=== PATIENT | female | born 1930 | race Caucasian/White ===

== ENCOUNTER 2018-05-19 07:53 | Emergency (ER) | payer MEDICARE, OTHER ==
[2018-05-19] MEDS ORDERED: Sodium Chloride 0.9% 10 ML Syringe FLUSH PRN (08:02)
[2018-05-19 08:53] LABS: ANION GAP 15.4; CHLORIDE,CL 96 mmol/L (101-111); SODIUM,NA 130 mmol/L (135-145)
[2018-05-19] MEDS ORDERED: Acetaminophen 325 MG Tab PO ONE (09:00)
--- NOTE | 2018-05-19 09:14 | EDM.PDOC ---
ED HPI GENERAL MEDICAL PROBLEM - General Chief Complaint: Possible Sepsis Stated Complaint: TROUBLE BREATHING,WEAK [id number] Time Seen by Provider: 05/19/18 08:43 Source of Information: Reports: Patient, RN, RN Notes Reviewed History Limitations: Reports: No Limitations - History of Present Illness INITIAL COMMENTS - FREE TEXT/NARRATIVE: Patient presents to ER with complaint of shortness of breath and dry cough. Patient states she was diagnosed with pneumonia on 04/30/18 and was given Amoxicillin. She has had chills, fever, shortness of breath and constipation. She has had no nausea, vomiting, diarrhea or chest pain. Onset: Gradual Duration: Constant Location: Reports: Chest Quality: Reports: Ache Severity: Moderate Improves with: Reports: None Worsens with: Reports: None Associated Symptoms: Reports: No Other Symptoms - Related Data Allergies Allergy/AdvReac Type Severity Reaction Status Date / Time aspirin Allergy Airway Verified 05/19/18 08:03 Tightness an eye drop for virus Allergy Itching Uncoded 05/19/18 08:03 seldane Allergy Cannot Uncoded 05/19/18 08:03 Remember Home Meds: Home Meds Albuterol [Ventolin HFA] 2 puff INH Q6HR PRN 07/19/13 [History] Levothyroxine [Synthroid] 100 mcg PO DAILY 07/19/13 [History] Montelukast [Singulair] 10 mg PO BEDTIME 07/19/13 [History] Theophylline [Theophylline Anhydrous] 300 mg PO BID 07/19/13 [History] Budesonide [Pulmicort Flexhaler] 2 puff INH BID 04/09/18 [History] Ganciclovir [Zirgan] 1 applic EYELF .5XDAY 04/09/18 [History] Non-Formulary Medication [NF Drug] 1 puff INH BID 04/09/18 [History] Omeprazole 20 mg PO DAILY 04/09/18 [History] Furosemide 40 mg PO DAILY #30 tablet 04/11/18 [Rx] Past Medical History HEENT History: Reports: Impaired Vision, Sinusitis Cardiovascular History: Reports: Heart Failure, Other (See Below) Other Cardiovascular History: mitral regurgitation Respiratory History: Reports: Asthma, Pneumonia, Recurrent, SOB Gastrointestinal History: Reports: Diverticulosis [employer] History: Reports: Endocrine/Metabolic History: Reports: Other (See Below) Other Endocrine/Metabolic History: radioactive therapy for thyroid - Past Surgical History Female Surgical History: Reports: Hysterectomy Musculoskeletal Surgical History: Reports: Arthroscopic Knee Social & Family History - Family History Family Medical History: Noncontributory - Tobacco Use Smoking Status *Q: Never Smoker - Caffeine Use Caffeine Use: Reports: Coffee - Recreational Drug Use Recreational Drug Use: No ED ROS GENERAL - Review of Systems Review Of Systems: ROS reveals no pertinent complaints other than HPI. ED EXAM, GENERAL - Physical Exam Exam: See Below Exam Limited By: No Limitations General Appearance: Alert Eye Exam: Bilateral Eye: EOMI, Normal Inspection, PERRL, Other (wearing glasses) Ears: Normal External Exam, Normal Canal, Hearing Grossly Normal, Normal TMs Nose: Normal Inspection, Normal Mucosa, No Blood Throat/Mouth: Normal Inspection, Normal Lips, Normal Teeth, Normal Gums, Normal Oropharynx, Normal Voice, No Airway Compromise Head: Atraumatic Neck: Normal Inspection, Supple, Non-Tender, Full Range of Motion Respiratory/Chest: Decreased Breath Sounds Cardiovascular: Other (murmur) GI/Abdominal: Normal Bowel Sounds, Soft, Non-Tender, No Organomegaly, No Distention, No Abnormal Bruit, No Mass (Female) Exam: Deferred Rectal (Female) Exam: Deferred Back Exam: Normal Inspection, Full Range of Motion, NT Extremities: Normal Inspection, Normal Range of Motion, Non-Tender, Normal Capillary Refill, No Pedal Edema Neurological: Alert, Oriented, CN II-XII Intact, Normal Cognition, Normal Gait, Normal Reflexes, No Motor/Sensory Deficits Psychiatric: Normal Affect Skin Exam: Warm, Dry, Intact, Normal Color, No Rash Lymphatic: No Adenopathy EKG INTERPRETATION EKG Date: 05/19/18 Time: 08:18 Rhythm: NSR Rate (Beats/Min): 94 [place]: Normal P-Wave: Present QRS: Wide ST-T: Normal QT: Normal Comparison: No Change Course - Vital Signs Last Recorded V/S: Last Vital Signs Temp 100.2 F 05/19/18 08:59 Pulse 87 05/19/18 08:59 Resp 24 H 05/19/18 08:59 BP 133/55 L 05/19/18 08:03 Pulse Ox 92 L 05/19/18 09:24 - Orders/Labs/Meds Orders: Active Orders 24 hr Category Date Time Status EKG Documentation Completion [RC] STAT Care 05/19/18 08:03 Active Peripheral IV Care [RC] . DIRECTED Care 05/19/18 08:03 Active RT Aerosol Therapy [RC] ASDIRECTED Care 05/19/18 09:24 Active Chest 1V Frontal [CR] Stat Exams 05/19/18 08:03 Taken CULTURE BLOOD [BC] Stat Lab 05/19/18 08:15 Received CULTURE BLOOD [BC] Stat Lab 05/19/18 08:20 Received CULTURE URINE [RM] Stat Lab 05/19/18 09:13 Received Blood Culture x2 Reflex Set [OM.PC] Stat Oth 05/19/18 08:03 Ordered Peripheral IV Insertion Adult [OM.PC] Stat Oth 05/19/18 08:02 Ordered Labs: Laboratory Tests 05/19/18 05/19/18 05/19/18 Range/Units 08:15 08:15 08:15 WBC 13.6 H (5.0-10.0) 10^3/uL RBC 4.36 (4.2-5.4) 10^6/uL Hgb 12.7 D (12.0-16.0) g/dL Hct 39.1 (37.0-47.0) % MCV 89.7 (80-100) fL MCH 29.1 (27.0-34.0) pg MCHC 32.5 L (33.0-35.0) g/dL Plt Count 323 (150-450) 10^3/uL Neut % (Auto) 85.4 H (42.2-75.2) % Lymph % (Auto) 5.6 L (20.5-50.1) % [place] % (Auto) 8.5 H (2-8) % Eos % (Auto) 0.4 L (1.0-3.0) % Baso % (Auto) 0.1 (0.0-1.0) % Sodium 130 L (135-145) mmol/L Potassium 3.4 L (3.6-5.0) mmol/L Chloride 96 L (101-111) mmol/L Carbon Dioxide 22.0 (21.0-31.0) mmol/L Anion Gap 15.4 BUN 12 (7-18) mg/dL Creatinine 0.8 (0.6-1.3) mg/dL Est Cr Clr Drug Dosing 39.92 mL/min Estimated GFR (MDRD) > 60 BUN/Creatinine Ratio 15.00 Glucose 145 H (74-105) mg/dL Lactic Acid 1.1 (0.5-2.2) mmol/L Calcium 8.7 (8.4-10.2) mg/dl Total Bilirubin 0.8 (0.2-1.0) mg/dL AST 23 (10-42) IU/L ALT 17 (10-60) IU/L Alkaline Phosphatase 85 (42-121) IU/L Troponin I < 0.02 (0.00-0.02) ng/ml B-Natriuretic Peptide 66 (0-100) pg/ml Total Protein 8.1 (6.7-8.2) g/dl Albumin 2.9 L (3.2-5.5) g/dl Globulin 5.2 Albumin/Globulin Ratio 0.56 Urine Color (YELLOW) Urine Appearance (CLEAR) Urine pH (5.0-9.0) Ur Specific [place] (1.005-1.030) Urine Protein (NEGATIVE) Urine Glucose (UA) (NEGATIVE) Urine Ketones (NEGATIVE) Urine Occult Blood (NEGATIVE) Urine Nitrite (NEGATIVE) Urine Bilirubin (NEGATIVE) Urine Urobilinogen (0.2-1.0) mg/dL Ur Leukocyte Esterase (NEGATIVE) Urine RBC /HPF Urine WBC (0-5/HPF) /HPF Ur Epithelial Cells /HPF Urine Bacteria (0-FEW/HPF) /HPF Urine Mucus /LPF 05/19/18 Range/Units 09:13 WBC (5.0-10.0) 10^3/uL RBC (4.2-5.4) 10^6/uL Hgb (12.0-16.0) g/dL Hct (37.0-47.0) % MCV (80-100) fL MCH (27.0-34.0) pg MCHC (33.0-35.0) g/dL Plt Count (150-450) 10^3/uL Neut % (Auto) (42.2-75.2) % Lymph % (Auto) (20.5-50.1) % [place] % (Auto) (2-8) % Eos % (Auto) (1.0-3.0) % Baso % (Auto) (0.0-1.0) % Sodium (135-145) mmol/L Potassium (3.6-5.0) mmol/L Chloride (101-111) mmol/L Carbon Dioxide (21.0-31.0) mmol/L Anion Gap BUN (7-18) mg/dL Creatinine (0.6-1.3) mg/dL Est Cr Clr Drug Dosing mL/min Estimated GFR (MDRD) BUN/Creatinine Ratio Glucose (74-105) mg/dL Lactic Acid (0.5-2.2) mmol/L Calcium (8.4-10.2) mg/dl Total Bilirubin (0.2-1.0) mg/dL AST (10-42) IU/L ALT (10-60) IU/L Alkaline Phosphatase (42-121) IU/L Troponin I (0.00-0.02) ng/ml B-Natriuretic Peptide (0-100) pg/ml Total Protein (6.7-8.2) g/dl Albumin (3.2-5.5) g/dl Globulin Albumin/Globulin Ratio Urine Color Yellow (YELLOW) Urine Appearance Slightly cloudy (CLEAR) Urine pH 7.5 (5.0-9.0) Ur Specific [place] 1.015 (1.005-1.030) Urine Protein 30 H (NEGATIVE) Urine Glucose (UA) Negative (NEGATIVE) Urine Ketones Negative (NEGATIVE) Urine Occult Blood Negative (NEGATIVE) Urine Nitrite Negative (NEGATIVE) Urine Bilirubin Negative (NEGATIVE) Urine Urobilinogen 1.0 (0.2-1.0) mg/dL Ur Leukocyte Esterase Small H (NEGATIVE) Urine RBC 0-5 /HPF Urine WBC 5-10 H (0-5/HPF) /HPF Ur Epithelial Cells Moderate H /HPF Urine Bacteria Few (0-FEW/HPF) /HPF Urine Mucus Occasional /LPF Meds: Medications Discontinued Medications Generic Name Dose Route Start Last Admin Trade Name Freq PRN Reason Stop Dose Admin Acetaminophen 650 mg 05/19/18 09:00 05/19/18 09:04 Tylenol PO 05/19/18 09:01 650 mg NOW ONE Administration Albuterol/Ipratropium 3 ml 05/19/18 09:24 05/19/18 09:30 Duoneb 3.0-0.5 Mg/3 Ml NEB 05/19/18 09:25 3 ml ONETIME ONE Administration Sodium Chloride 10 ml 05/19/18 08:02 Saline Flush FLUSH ASDIRECTED PRN Keep Vein Open - Radiology Interpretation Free Text/Narrative:: Chest Xray: FINDINGS: Lungs: The lungs are hyperinflated. No focal consolidation. Pleural space: Unremarkable. No pleural effusion. No pneumothorax. Heart/Mediastinum: The heart is borderline in size. Bones/joints: Unremarkable. IMPRESSION: Hyperinflation without radiographic evidence of an acute cardiopulmonary process. Thank you for allowing us to participate in the care of your patient. Dictated and Authenticated by: Maddy Shore MD 05/19/2018 9:08 AM Central Time ([place] & [place]) See Rad Report Departure - Departure Time of Disposition: 10:02 Disposition: Home, Self-Care 01 Condition: Fair Clinical Impression: Acute bronchitis Qualifiers: Bronchitis organism: unspecified organism Qualified Code(s): J20.9 - Acute bronchitis, unspecified - Discharge Information *PRESCRIPTION DRUG MONITORING PROGRAM REVIEWED*: No *COPY OF PRESCRIPTION DRUG MONITORING REPORT IN PATIENT GERALDINE: No Instructions: Acute Bronchitis, Adult, [id number] Referrals: Hans Conde MD [Primary Care Provider] - Forms: ED Department Discharge Additional Instructions: RX: Azithromycin, Duonebs Follow up with your primary care facility Return to ER with any further problems - My Orders Last 24 Hours: My Active Orders 05/19/18 08:02 Peripheral IV Insertion Adult [OM.PC] Stat 05/19/18 08:03 EKG Documentation Completion [RC] STAT Peripheral IV Care [RC] . DIRECTED Chest 1V Frontal [CR] Stat Blood Culture x2 Reflex Set [OM.PC] Stat 05/19/18 08:15 CULTURE BLOOD [BC] Stat 05/19/18 08:20 CULTURE BLOOD [BC] Stat 05/19/18 09:13 CULTURE URINE [RM] Stat 05/19/18 09:24 RT Aerosol Therapy [RC] ASDIRECTED - Assessment/Plan Last 24 Hours: My Active Orders 05/19/18 08:02 Peripheral IV Insertion Adult [OM.PC] Stat 05/19/18 08:03 EKG Documentation Completion [RC] STAT Peripheral IV Care [RC] . DIRECTED Chest 1V Frontal [CR] Stat Blood Culture x2 Reflex Set [OM.PC] Stat 05/19/18 08:15 CULTURE BLOOD [BC] Stat 05/19/18 08:20 CULTURE BLOOD [BC] Stat 05/19/18 09:13 CULTURE URINE [RM] Stat 05/19/18 09:24 RT Aerosol Therapy [RC] ASDIRECTED
[2018-05-19] MEDS ORDERED: Albuterol/Ipratropium 3.0-0.5 MG/3 ML Neb Soln NEB ONE (09:24)
== END 2018-05-19 10:15 | disposition home or self-care (01) ==
LOC: DL.ED 07:53
DX: J20.9 Acute bronchitis, unspecified (principal); I50.9 Heart failure, unspecified; J45.909 Unspecified asthma, uncomplicated; Z88.8 Allergy status to other drugs, medicaments and biological substances; Z79.899 Other long term (current) drug therapy
CPT/HCPCS: 36415; 71045; 80053; 81001; 83605; 83880; 84484; 85025; 87040; 87086; 87088; 87186; 87804; 93005; 94640; 99285; A9270; J7620-GY

== ENCOUNTER 2018-07-21 13:13 | Emergency (ER) | payer MEDICARE, OTHER ==
[2018-07-21] MEDS ORDERED: Sodium Chloride 0.9% 10 ML Syringe FLUSH PRN (13:32)
--- NOTE | 2018-07-21 13:43 | EDM.PDOC ---
ED HPI GENERAL MEDICAL PROBLEM - General Chief Complaint: Respiratory Problem Stated Complaint: CALL IN Time Seen by Provider: 07/21/18 13:20 Source of Information: Reports: Patient, EMS, EMS Notes Reviewed, RN, RN Notes Reviewed History Limitations: Reports: No Limitations - History of Present Illness INITIAL COMMENTS - FREE TEXT/NARRATIVE: Patient presents to ER per [facility] with complaint of shortness of breath. States she vacuumed today and got very lightheaded, dizzy and short of breath. She is unsure if she took her 02 off and forgot to put it back on. She has had chills, shortness of breath, light headedness, sinus congestion and dizziness. No fever or chest pain. Onset: Today Duration: Constant Location: Reports: Chest Quality: Reports: Ache Severity: Moderate Improves with: Reports: None Worsens with: Reports: None Associated Symptoms: Reports: No Other Symptoms - Related Data Allergies Allergy/AdvReac Type Severity Reaction Status Date / Time aspirin Allergy Airway Verified 05/19/18 08:03 Tightness an eye drop for virus Allergy Itching Uncoded 05/19/18 08:03 seldane Allergy Cannot Uncoded 05/19/18 08:03 Remember Home Meds: Home Meds Albuterol [Ventolin HFA] 2 puff INH Q6HR PRN 07/19/13 [History] Levothyroxine [Synthroid] 100 mcg PO DAILY 07/19/13 [History] Montelukast [Singulair] 10 mg PO BEDTIME 07/19/13 [History] Theophylline [Theophylline Anhydrous] 300 mg PO BID 07/19/13 [History] Budesonide [Pulmicort Flexhaler] 2 puff INH BID 04/09/18 [History] Ganciclovir [Zirgan] 1 applic EYELF .5XDAY 04/09/18 [History] Non-Formulary Medication [NF Drug] 1 puff INH BID 04/09/18 [History] Omeprazole 20 mg PO DAILY 04/09/18 [History] Furosemide 40 mg PO DAILY #30 tablet 04/11/18 [Rx] Past Medical History HEENT History: Reports: Impaired Vision, Sinusitis Cardiovascular History: Reports: Heart Failure, Other (See Below) Other Cardiovascular History: mitral regurgitation Respiratory History: Reports: Asthma, COPD, Pneumonia, Recurrent, SOB Gastrointestinal History: Reports: Diverticulosis [employer] History: Reports: Endocrine/Metabolic History: Reports: Other (See Below) Other Endocrine/Metabolic History: radioactive therapy for thyroid - Past Surgical History Female Surgical History: Reports: Hysterectomy Musculoskeletal Surgical History: Reports: Arthroscopic Knee Social & Family History - Family History Family Medical History: Noncontributory - Tobacco Use Smoking Status *Q: Never Smoker Second Hand Smoke Exposure: No - Caffeine Use Caffeine Use: Reports: Coffee - Recreational Drug Use Recreational Drug Use: No ED ROS GENERAL - Review of Systems Review Of Systems: ROS reveals no pertinent complaints other than HPI. ED EXAM, GENERAL - Physical Exam Exam: See Below Exam Limited By: No Limitations General Appearance: Alert, WD/WN, No Apparent Distress Eye Exam: Bilateral Eye: EOMI, Normal Inspection, PERRL Ears: Normal External Exam, Normal Canal, Hearing Grossly Normal, Normal TMs Nose: Normal Inspection, Normal Mucosa, No Blood Throat/Mouth: Normal Inspection, Normal Lips, Normal Teeth, Normal Gums, Normal Oropharynx, Normal Voice, No Airway Compromise Head: Atraumatic, Normocephalic Neck: Normal Inspection, Supple, Non-Tender, Full Range of Motion Respiratory/Chest: Other (diminished air exchange) Cardiovascular: Regular Rate, Rhythm GI/Abdominal: Normal Bowel Sounds, Soft, Non-Tender, No Organomegaly, No Distention, No Abnormal Bruit, No Mass (Female) Exam: Deferred Rectal (Female) Exam: Deferred Back Exam: Normal Inspection, Full Range of Motion, NT Extremities: Other (weakness) Neurological: Alert Psychiatric: Normal Affect, Normal Mood Skin Exam: Warm, Dry, Intact, Normal Color, No Rash Lymphatic: No Adenopathy EKG INTERPRETATION EKG Date: 07/21/18 Time: 13:37 Rhythm: Other (sinus rhythm) Rate (Beats/Min): 76 EKG Interpretation Comments: Ventricular premature complex, probable left atrial abnormality, nonspecific intraventricular conduction delay, left ventricular hypertrophy, anterior Q waves, possibly due to LVH and baseline wander in lead (s) III. Course - Vital Signs Last Recorded V/S: Last Vital Signs Temp 98.8 F 07/21/18 13:12 Pulse 89 07/21/18 13:12 Resp 18 07/21/18 13:12 BP 134/70 07/21/18 13:12 Pulse Ox 95 07/21/18 13:12 - Orders/Labs/Meds Orders: Active Orders 24 hr Category Date Time Status EKG Documentation Completion [RC] STAT Care 07/21/18 13:42 Active Peripheral IV Care [RC] . DIRECTED Care 07/21/18 13:33 Active Sodium Chloride 0.9% [Saline Flush] Med 07/21/18 13:32 Active 10 ml FLUSH ASDIRECTED PRN Peripheral IV Insertion Adult [OM.PC] Stat Oth 07/21/18 13:32 Ordered Medication Orders Sodium Chloride (Saline Flush) 10 ml FLUSH ASDIRECTED PRN PRN Reason: Keep Vein Open Last Admin: 07/21/18 13:35 Dose: 10 ml Labs: Laboratory Tests 07/21/18 07/21/18 07/21/18 Range/Units 13:19 13:19 13:19 WBC 7.6 (5.0-10.0) 10^3/uL RBC 4.88 (4.2-5.4) 10^6/uL Hgb 14.2 D (12.0-16.0) g/dL Hct 43.6 (37.0-47.0) % MCV 89.3 (80-100) fL MCH 29.1 (27.0-34.0) pg MCHC 32.6 L (33.0-35.0) g/dL Plt Count 250 (150-450) 10^3/uL Neut % (Auto) 63.9 (42.2-75.2) % Lymph % (Auto) 23.7 (20.5-50.1) % [place] % (Auto) 7.8 (2-8) % Eos % (Auto) 4.1 H (1.0-3.0) % Baso % (Auto) 0.5 (0.0-1.0) % Sodium 136 (135-145) mmol/L Potassium 3.6 (3.6-5.0) mmol/L Chloride 100 L (101-111) mmol/L Carbon Dioxide 26.0 (21.0-31.0) mmol/L Anion Gap 13.6 BUN 16 (7-18) mg/dL Creatinine 1.0 (0.6-1.3) mg/dL Est Cr Clr Drug Dosing 30.47 mL/min Estimated GFR (MDRD) 53 BUN/Creatinine Ratio 16.00 Glucose 117 H (74-105) mg/dL Calcium 9.3 (8.4-10.2) mg/dl Total Bilirubin 0.8 (0.2-1.0) mg/dL AST 25 (10-42) IU/L ALT 16 (10-60) IU/L Alkaline Phosphatase 69 (42-121) IU/L Troponin I < 0.02 (0.00-0.02) ng/ml B-Natriuretic Peptide 62 (0-100) pg/ml Total Protein 8.5 H (6.7-8.2) g/dl Albumin 3.6 (3.2-5.5) g/dl Globulin 4.9 Albumin/Globulin Ratio 0.73 Meds: Medications Generic Name Dose Route Start Last Admin Trade Name Freq PRN Reason Stop Dose Admin Sodium Chloride 10 ml 07/21/18 13:32 07/21/18 13:35 Saline Flush FLUSH 10 ml ASDIRECTED PRN Administration Keep Vein Open - Radiology Interpretation Free Text/Narrative:: Chest xray: Abnormal Subtle asymmetric patchy new consolidation periphery right midlung (axillary segment right upper lobe) compared May, exam. Cardiac silhouette smaller (normal) and no current cephalization of vascular flow, signs of alveolar edema or dependent pleural fluid accumulation i.e. "CHF " resolved. No new lung mass, hilar lymphadenopathy or other lobar consolidation (infiltrate /atelectasis is present See rad report Departure - Departure Time of Disposition: 14:39 Disposition: Home, Self-Care 01 Condition: Fair Clinical Impression: Acute bronchitis Qualifiers: Bronchitis organism: unspecified organism Qualified Code(s): J20.9 - Acute bronchitis, unspecified - Discharge Information *PRESCRIPTION DRUG MONITORING PROGRAM REVIEWED*: No *COPY OF PRESCRIPTION DRUG MONITORING REPORT IN PATIENT GERALDINE: No Instructions: Acute Bronchitis, Adult, [id number] Forms: ED Department Discharge Additional Instructions: RX: Doxycycline Follow up with your primary care facility - My Orders Last 24 Hours: My Active Orders 07/21/18 13:32 Sodium Chloride 0.9% [Saline Flush] 10 ml FLUSH ASDIRECTED PRN Peripheral IV Insertion Adult [OM.PC] Stat 07/21/18 13:33 Peripheral IV Care [RC] . DIRECTED 07/21/18 13:42 EKG Documentation Completion [RC] STAT - Assessment/Plan Last 24 Hours: My Active Orders 07/21/18 13:32 Sodium Chloride 0.9% [Saline Flush] 10 ml FLUSH ASDIRECTED PRN Peripheral IV Insertion Adult [OM.PC] Stat 07/21/18 13:33 Peripheral IV Care [RC] . DIRECTED 07/21/18 13:42 EKG Documentation Completion [RC] STAT
[2018-07-21 13:54] LABS: ANION GAP 13.6; CHLORIDE,CL 100 mmol/L (101-111); SODIUM,NA 136 mmol/L (135-145)
--- NOTE | 2018-07-21 14:23 | CR ---
Clinical history: 88-year-old female complaining of chest pain. Interpretation: Abnormal. *Subtle asymmetric patchy new consolidation periphery right midlung (axillary segment right upper lobe) compared May, exam. Fever? WBC? D dimer? Cardiac silhouette smaller (normal) and no current cephalization of vascular flow, signs of alveolar edema or dependent pleural fluid accumulation i.e. "CHF" resolved. No new lung mass, hilar lymphadenopathy or other lobar consolidation (infiltrate/atelectasis is present
== END 2018-07-21 15:33 | disposition home or self-care (01) ==
LOC: DL.ED 13:13
DX: J20.9 Acute bronchitis, unspecified (principal); I50.9 Heart failure, unspecified; J44.9 Chronic obstructive pulmonary disease, unspecified; Z79.899 Other long term (current) drug therapy; Z88.6 Allergy status to analgesic agent; Z88.8 Allergy status to other drugs, medicaments and biological substances
CPT/HCPCS: 36415; 71045; 80053; 83880; 84484; 85025; 93005; 99285-25

== ENCOUNTER 2019-07-01 06:30 | Emergency (ER) | payer MEDICARE, OTHER ==
[2019-07-01] MEDS: Sodium Chloride 0.9% 10 ML Syringe FLUSH PRN ×2 (06:46→07:47)
--- NOTE | 2019-07-01 07:00 | EDM.PDOC ---
<Mira Tavarez - Last Filed: 07/01/19 06:54> ED HPI GENERAL MEDICAL PROBLEM - General Chief Complaint: Cardiovascular Problem Stated Complaint: WEAK, CHEST TIGHTNESS Time Seen by Provider: 07/01/19 06:40 Source of Information: Reports: Patient, RN, RN Notes Reviewed History Limitations: Reports: No Limitations - History of Present Illness INITIAL COMMENTS - FREE TEXT/NARRATIVE: Patient presents to the ER with complaint of a funny feeling in her chest that began about 3:30 this morning. Patient states is not necessarily a pain but a dull tightness, making it more difficult to breathe. Patient is on oxygen at all times at home, history of COPD, asthma, and a leaky valve. Patient denies nausea or vomiting, diarrhea. Patient denies fever or chills. Patient states she moved a large chair earlier this week by herself and became very hot and winded after that. Onset: Today, Sudden - Related Data Allergies Allergy/AdvReac Type Severity Reaction Status Date / Time aspirin Allergy Airway Verified 07/01/19 06:37 Tightness an eye drop for virus Allergy Itching Uncoded 07/01/19 06:37 seldane Allergy Cannot Uncoded 07/01/19 06:37 Remember Home Meds: Home Meds Albuterol [Ventolin HFA] 2 puff INH Q6HR PRN 07/19/13 [History] Levothyroxine [Synthroid] 100 mcg PO DAILY 07/19/13 [History] Montelukast [Singulair] 10 mg PO BEDTIME 07/19/13 [History] Theophylline [Theophylline Anhydrous] 300 mg PO BID 07/19/13 [History] Budesonide [Pulmicort Flexhaler] 2 puff INH BID 04/09/18 [History] Ganciclovir [Zirgan] 1 applic EYELF .5XDAY 04/09/18 [History] Non-Formulary Medication [NF Drug] 1 puff INH BID 04/09/18 [History] Omeprazole 20 mg PO DAILY 04/09/18 [History] Furosemide 40 mg PO DAILY #30 tablet 04/11/18 [Rx] Potassium Chloride 10 meq PO BID 07/01/19 [History] Past Medical History HEENT History: Reports: Impaired Vision, Sinusitis Cardiovascular History: Reports: Heart Failure, Other (See Below) Other Cardiovascular History: mitral regurgitation Respiratory History: Reports: Asthma, COPD, Pneumonia, Recurrent, SOB Gastrointestinal History: Reports: Diverticulosis 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 ED EXAM, GENERAL - Physical Exam Exam: See Below Exam Limited By: No Limitations General Appearance: Alert, WD/WN, Mild Distress Eye Exam: Bilateral Eye: EOMI, Normal Inspection Ears: Normal External Exam, Hearing Grossly Normal Nose: Normal Inspection, Nasal Drainage (green) Throat/Mouth: Normal Inspection, Normal Lips, Normal Teeth, Normal Gums, Normal Oropharynx, Normal Voice, No Airway Compromise Head: Atraumatic, Normocephalic Neck: Normal Inspection, Supple, Non-Tender, Full Range of Motion Respiratory/Chest: No Respiratory Distress, No Accessory Muscle Use, Chest Non- Tender, Decreased Breath Sounds, Crackles (fine bases bilaterally) Cardiovascular: Normal Peripheral Pulses, No Edema, No Gallop, No JVD, Systolic Murmur, Irregularly Irregular Peripheral Pulses: 2+: Radial (L), Radial (R) GI/Abdominal: Normal Bowel Sounds, Soft, Non-Tender (Female) Exam: Deferred Rectal (Female) Exam: Deferred Back Exam: Normal Inspection Extremities: Normal Inspection, Normal Range of Motion, Non-Tender, Normal Capillary Refill, No Pedal Edema Neurological: Alert, Oriented, CN II-XII Intact, Normal Cognition, Normal Gait, Normal Reflexes, No Motor/Sensory Deficits Psychiatric: Normal Affect, Normal Mood Skin Exam: Warm, Dry, Intact, Normal Color, No Rash Lymphatic: No Adenopathy Course - Vital Signs Last Recorded V/S: Last Vital Signs Temp 97.2 F 07/01/19 06:38 Pulse 77 07/01/19 06:38 Resp 21 H 07/01/19 06:38 BP 151/66 H 07/01/19 06:38 Pulse Ox 96 07/01/19 06:38 - Orders/Labs/Meds Orders: Active Orders 24 hr Category Date Time Status EKG Documentation Completion [RC] URGENT Care 07/01/19 06:42 Active Peripheral IV Care [RC] . DIRECTED Care 07/01/19 06:43 Active Sodium Chloride 0.9% [Saline Flush] Med 07/01/19 06:41 Active 10 ml FLUSH ASDIRECTED PRN Peripheral IV Insertion Adult [OM.PC] Stat Oth 07/01/19 06:41 Ordered Medication Orders Sodium Chloride (Saline Flush) 10 ml FLUSH ASDIRECTED PRN PRN Reason: Keep Vein Open Last Admin: 07/01/19 06:46 Dose: 10 ml Labs: Laboratory Tests 07/01/19 07/01/19 07/01/19 Range/Units 06:37 06:37 06:58 WBC 8.7 (5.0-10.0) 10^3/uL RBC 4.75 (4.2-5.4) 10^6/uL Hgb 14.2 (12.0-16.0) g/dL Hct 42.2 (37.0-47.0) % MCV 88.8 (80-100) fL MCH 29.9 (27.0-34.0) pg MCHC 33.6 (33.0-35.0) g/dL Plt Count 221 (150-450) 10^3/uL Neut % (Auto) 58.9 (42.2-75.2) % Lymph % (Auto) 26.5 (20.5-50.1) % Loving % (Auto) 8.8 H (2-8) % Eos % (Auto) 5.6 H (1.0-3.0) % Baso % (Auto) 0.2 (0.0-1.0) % Sodium 138 (135-145) mmol/L Potassium 3.0 L (3.6-5.0) mmol/L Chloride 100 L (101-111) mmol/L Carbon Dioxide 28.0 (21.0-31.0) mmol/L Anion Gap 13.0 BUN 18 (7-18) mg/dL Creatinine 0.8 (0.6-1.3) mg/dL Est Cr Clr Drug Dosing 39.18 mL/min Estimated GFR (MDRD) > 60 BUN/Creatinine Ratio 22.50 Glucose 104 (74-105) mg/dL Lactic Acid 1.5 (0.5-2.0) mmol/L Calcium 9.5 (8.4-10.2) mg/dl Total Bilirubin 0.7 (0.2-1.0) mg/dL AST 19 (10-42) IU/L ALT 11 (10-60) IU/L Alkaline Phosphatase 73 (42-121) IU/L Troponin I < 0.02 (0.00-0.02) ng/ml B-Natriuretic Peptide 63 (0-100) pg/ml Total Protein 8.3 H (6.7-8.2) g/dl Albumin 3.9 (3.2-5.5) g/dl Globulin 4.4 Albumin/Globulin Ratio 0.89 Meds: Medications Generic Name Dose Route Start Last Admin Trade Name Freq PRN Reason Stop Dose Admin Sodium Chloride 10 ml 07/01/19 06:41 07/01/19 06:46 Saline Flush FLUSH 10 ml ASDIRECTED PRN Administration Keep Vein Open Discontinued Medications Generic Name Dose Route Start Last Admin Trade Name Freq PRN Reason Stop Dose Admin Potassium Chloride 40 meq 07/01/19 07:25 Klor-Con 10 PO 07/01/19 07:26 ONETIME ONE Departure - Departure Disposition: Home, Self-Care 01 Clinical Impression: Atypical chest pain, Hypokalemia, History of chronic obstructive pulmonary disease Instructions: Potassium Content of Foods, Nonspecific Chest Pain, [id number] Forms: ED Department Discharge Additional Instructions: Use your nebulizer as prescribed. Continue all of your medications, including Potassium. Follow up in clinic this week for recheck. Return to ER if worse at any time, or if any new or concerning symptoms develop. Stop moving furniture by yourself! Sepsis Event Note - Evaluation Sepsis Screening Result: No Definite Risk - Focused Exam Vital Signs: Vital Signs Temp Pulse Resp BP Pulse Ox 07/01/19 06:38 97.2 F 77 21 H 151/66 H 96 Date Exam was Performed: 07/01/19 Time Exam was Performed: 06:54 <Walter Florse - Last Filed: 07/01/19 07:45> ED HPI GENERAL MEDICAL PROBLEM - History of Present Illness INITIAL COMMENTS - FREE TEXT/NARRATIVE: I assumed care of the pt from Mira Tavarez DRAIN TILE MACHINE OPERATOR at 0700HR shift change with lab results pending. Per DRAIN TILE MACHINE OPERATOR there are no acute EKG changes, and a stable chest x- ray with no acute process per Rad. report. Pt denies pain or symptoms at this time. Pt states the symptoms only occurred when she "over did" by moving the large chair this morning, and resolved upon rest. She admits that she has not been taking her Potassium supplements because of stomach upset side effects, and she has not been using her nebulizer. She has been compliant with all of her other medications. Duration: Constant Location: Reports: Chest Quality: Reports: Pressure Severity: Mild Improves with: Reports: None Worsens with: Reports: None Context: Reports: Activity (Onset after moving a large chair.) Associated Symptoms: Reports: No Other Symptoms Social & Family History - Living Situation & Occupation Living situation: Reports: Alone Occupation: Retired ED EXAM, GENERAL - Physical Exam Free Text/Narrative:: No changes to exam as documented by Mira Tavarez DRAIN TILE MACHINE OPERATOR for this encounter. Course - Radiology Interpretation Free Text/Narrative:: [facility] Final Radiology Report Call: [phone] assistance Online chat: [email or web address] Name: MANDA GARCIA Age: 89Years F Date: 07/01/2019 SSN: -- : [id number] Study: XR CHEST 1 VIEW FRONTAL Requesting Physician: Mira Tavarez Images: 1 Addl Studies: Provided Clinical History: Contrast: Contrast Medium: Contrast Amount: Contrast Method: CONFIDENTIALITY STATEMENT This report is intended only for use by the referring physician, and only in accordance with law. If you received this in error, call [phone]. Page 1 of 1 PROCEDURE INFORMATION: Exam: XR Chest, 1 View Exam date and time: 07/01/2019 6:56 AM Age: 89 years old Clinical indication: Chest pain; Type not specified TECHNIQUE: Imaging protocol: XR of the chest Views: 1 view. COMPARISON: CR Chest 1V Frontal 07/21/2018 2:13 PM FINDINGS: Lungs: Unremarkable. No consolidation. Pleural space: Unremarkable. No pleural effusion. No pneumothorax. Heart/Mediastinum: Unremarkable. No cardiomegaly. Bones/joints: Unremarkable. IMPRESSION: No acute findings. Thank you for allowing us to participate in the care of your patient. Dictated and Authenticated by: Mati Oscar MD 07/01/2019 7:07 AM Central Time ([place] & [place]) Departure - Departure Time of Disposition: 07:41 Condition: Good Sepsis Event Note - Focused Exam Date Exam was Performed: 07/01/19 Time Exam was Performed: 07:38
[2019-07-01 07:06] LABS: CHLORIDE,CL 100 mmol/L (101-111); SODIUM,NA 138 mmol/L (135-145)
[2019-07-01] MEDS ORDERED: Potassium Chloride 10 MEQ Tab.ER PO ONE (07:25)
== END 2019-07-01 08:08 | disposition home or self-care (01) ==
LOC: DL.ED 06:30
DX: R07.89 Other chest pain (principal); E87.6 Hypokalemia; J44.9 Chronic obstructive pulmonary disease, unspecified; I50.9 Heart failure, unspecified; Z79.899 Other long term (current) drug therapy; Z88.8 Allergy status to other drugs, medicaments and biological substances; Z88.6 Allergy status to analgesic agent
CPT/HCPCS: 36415; 71045; 80053; 83605; 83880; 84484; 85025; 93005; 99285; A9270; 99284

== ENCOUNTER 2020-01-08 15:39 | Emergency (ER) | payer MEDICARE, OTHER ==
[2020-01-08] MEDS ORDERED: Lidocaine 1% 30 ML SDV INJECT ONE (15:59)
[2020-01-08] MEDS ORDERED: Bupivacaine 0.5% 30 ML SDV INFILT ONE (16:00)
[2020-01-08] MEDS ORDERED: Diphtheria,Pertussis(Acell),Tetanus Vaccine 0.5 ML SDV IM ONE (16:00)
[2020-01-08] MEDS ORDERED: Bacitracin Oint 1 GM U/D Packet TOP ONE (16:01)
--- NOTE | 2020-01-08 16:32 | CR ---
PROCEDURE INFORMATION: Exam: XR Right Knee Exam date and time: 01/08/2020 4:07 PM Age: 89 years old Clinical indication: Injury or trauma; Fall; Initial encounter; Blunt trauma; Knee; Right; Prior surgery; Surgery date: 6+ months; Additional info: Fall, RT knee injury and laceration TECHNIQUE: Imaging protocol: XR Right knee. Views: 3 views. COMPARISON: No relevant prior studies available. FINDINGS: Bones/joints: Arthroplasty device in place. Evidence of previous resurfacing of the posterior patella. No acute fractures seen. No evidence of acute dislocation. No radiographic evidence of significant joint effusion. Soft tissues: No acute radiographic abnormality. Vasculature: Vascular calcifications. IMPRESSION: 1. No acute fracture or dislocation. 2. Arthroplasty device in place. 3. See above for remaining findings.
--- NOTE | 2020-01-08 17:43 | EDM.PDOC ---
Scribed by Kyung Tobin 01/08/20 [id number] for Walter Flores MD ED HPI GENERAL MEDICAL PROBLEM - General Chief Complaint: Lower Extremity Injury/Pain Stated Complaint: RIGHT LEG, TRIPPED OVER OXYGEN CORD Time Seen by Provider: 01/08/20 16:20 Source of Information: Reports: Patient, RN, RN Notes Reviewed History Limitations: Reports: No Limitations - History of Present Illness INITIAL COMMENTS - FREE TEXT/NARRATIVE: Patient presents to ED by POV stating she tripped over her oxygen cord and fell on her right knee at about 1100 hours this morning. She laid the falp laceration back into place, stayed home thinking it would heal. It continues to pull back and bleed. Denies any loss of conscious, neck injury, nausea or vomiting. Admits to a small injury to the skin of her right elbow. She does not recall when her last tetanus vaccine was given. Onset: Today Duration: Constant Location: Reports: Lower Extremity, Right Quality: Reports: Ache Severity: Moderate Improves with: Reports: None Worsens with: Reports: None Associated Symptoms: Reports: No Other Symptoms - Related Data Allergies Allergy/AdvReac Type Severity Reaction Status Date / Time aspirin Allergy Airway Verified 01/08/20 16:17 Tightness an eye drop for virus Allergy Itching Uncoded 01/08/20 16:17 seldane Allergy Cannot Uncoded 01/08/20 16:17 Remember Home Meds: Home Meds Albuterol [Ventolin HFA] 2 puff INH Q6HR PRN 07/19/13 [History] Levothyroxine [Synthroid] 100 mcg PO DAILY 07/19/13 [History] Montelukast [Singulair] 10 mg PO BEDTIME 07/19/13 [History] Theophylline [Theophylline Anhydrous] 300 mg PO BID 07/19/13 [History] Budesonide [Pulmicort Flexhaler] 2 puff INH BID 04/09/18 [History] Ganciclovir [Zirgan] 1 applic EYELF .5XDAY 04/09/18 [History] Non-Formulary Medication [NF Drug] 1 puff INH BID 04/09/18 [History] Omeprazole 20 mg PO DAILY 04/09/18 [History] Furosemide 40 mg PO DAILY #30 tablet 04/11/18 [Rx] Potassium Chloride 10 meq PO BID 07/01/19 [History] Past Medical History HEENT History: Reports: Impaired Vision, Sinusitis Cardiovascular History: Reports: Heart Failure, Other (See Below) Other Cardiovascular History: mitral regurgitation Respiratory History: Reports: Asthma, COPD, Pneumonia, Recurrent, SOB Gastrointestinal History: Reports: Diverticulosis 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 ED EXAM, GENERAL - Physical Exam Exam: See Below Exam Limited By: No Limitations General Appearance: Alert, WD/WN, No Apparent Distress Head: Atraumatic, Normocephalic Neck: Normal Inspection Respiratory/Chest: No Respiratory Distress Cardiovascular: Normal Peripheral Pulses, Regular Rate, Rhythm Extremities: Normal Range of Motion, No Pedal Edema, Normal Capillary Refill, Arm Pain (Rt olecranon elbow with small bruise and superficial skin tear), Other (13cm "V" shaped laceration to right anterior knee to depth of deep subcutaneous tissue). No: Joint Swelling Neurological: Alert, Oriented, No Motor/Sensory Deficits Psychiatric: Normal Mood Skin Exam: Warm, Dry ED TRAUMA EXTREMITY PROCEDURES - Laceration/Wound Repair Right Anterior Knee Lac/Wound Length In cm: 13 Appearance: Subcutaneous, Irregular, Clean Distal NVT: Neuro & Vascular Intact, No Tendon Injury Anesthetic Type: Local Local Anesthesia - Lidocaine (Xylocaine): 1% Plain (20cc) Local Anesthesia - Bupivicaine (Marcaine): 0.5% Plain (20cc) Skin Prep: Chlorhexidine (Hibiciens), Saline, Sterile Drape Saline Irrigation (cc's): 1,000 Exploration/Debridement/Repair: Wound Explored, In a Bloodless Field, Explored to Base, Moderate Debridement, Moderately Undermined, No Foreign Material Found, Wound Margins Revised, Multiple Flaps Aligned Closed With: Sutures Suture Size: 3-0 # of Sutures: 27 Suture Type: Nylon, Interrupted, Running Drain Placement: No Tetanus Status Addressed: Yes Complications: No - Splinting Right Lower Extremity Splint Site: Rt knee Pre-Procedure NV Status: Normal Post-Procedure NV Status: Normal Splint Material: Velcro Splint Design: Knee Immobilizer (Rt) Applied & Form Fitted By: Nurse Provider Post-Splint Application NV Check: NV Status Normal, Good Position Complications: No Course - Vital Signs Last Recorded V/S: Last Vital Signs Temp 96.4 F L 01/08/20 16:13 Pulse 91 01/08/20 16:13 Resp 14 01/08/20 16:13 BP 154/88 H 01/08/20 16:13 Pulse Ox 95 01/08/20 16:13 - Orders/Labs/Meds Orders: Active Orders 24 hr Category Date Time Status Immobilizer [RC] ASDIRECTED Care 01/08/20 16:01 Active Vaccines to be Administered [RC] PER UNIT ROUTINE Care 01/08/20 16:00 Active Steri Strips Application [OM.PC] Routine Oth 01/08/20 16:01 Ordered Meds: Medications Discontinued Medications Generic Name Dose Route Start Last Admin Trade Name William PRN Reason Stop Dose Admin Bacitracin 1 dose 01/08/20 16:01 Bacitracin Oint 1 Gm TOP 01/08/20 16:02 ONETIME ONE Bupivacaine HCl 30 ml 01/08/20 16:00 Marcaine 0.5% INFILT 01/08/20 16:01 ONETIME ONE Diphtheria/Tetanus/Acell Pertussis 0.5 ml 01/08/20 16:00 Adacel IM 01/08/20 16:01 .ONCE ONE Lidocaine HCl 30 ml 01/08/20 15:59 Xylocaine-Mpf 1% INJECT 01/08/20 16:00 ONETIME ONE - Radiology Interpretation Free Text/Narrative:: Right knee x-ray: No acute fracture or dislocation. Arthroplasty device in place. See rad report. - Re-Assessments/Exams Free Text/Narrative Re-Assessment/Exam: 01/08/20 17:40 Right elbow skin tear cleansed and steri-stripped by RN. Departure - Departure Time of Disposition: 17:41 Disposition: Home, Self-Care 01 Condition: Good Clinical Impression: Laceration of right knee Qualifiers: Encounter type: initial encounter Qualified Code(s): S81.011A - Laceration without foreign body, right knee, initial encounter Skin tear of right elbow without complication Qualifiers: Encounter type: initial encounter Qualified Code(s): S51.011A - Laceration without foreign body of right elbow, initial encounter Fall as cause of accidental injury at home as place of occurrence Qualifiers: Encounter type: initial encounter Qualified Code(s): W19.XXXA - Unspecified fall, initial encounter; Y92.009 - Unspecified place in unspecified non- institutional (private) residence as the place of occurrence of the external cause - Discharge Information *PRESCRIPTION DRUG MONITORING PROGRAM REVIEWED*: Not Applicable *COPY OF PRESCRIPTION DRUG MONITORING REPORT IN PATIENT GERALDINE: Not Applicable Instructions: Laceration Care, Adult Forms: ED Department Discharge Additional Instructions: Wear the knee immobilizer and use walker until sutures are removed. May remove the immobilizer to shower and sleep. Follow up in clinic in 9 or 10 days for suture removal. Sepsis Event Note (ED) - Focused Exam Vital Signs: Vital Signs Temp Pulse Resp BP Pulse Ox 01/08/20 16:13 96.4 F L 91 14 154/88 H 95 - My Orders Last 24 Hours: My Active Orders 01/08/20 16:00 Vaccines to be Administered [RC] PER UNIT ROUTINE 01/08/20 16:01 Immobilizer [RC] ASDIRECTED Steri Strips Application [OM.PC] Routine - Assessment/Plan Last 24 Hours: My Active Orders 01/08/20 16:00 Vaccines to be Administered [RC] PER UNIT ROUTINE 01/08/20 16:01 Immobilizer [RC] ASDIRECTED Steri Strips Application [OM.PC] Routine I have read and agree with the documentation that has been completed regarding this visit. By signing this record, I attest that the documentation was completed in my physical presence and is an accurate record of the encounter.
== END 2020-01-08 18:00 | disposition home or self-care (01) ==
LOC: DL.ED 15:39
DX: S81.011A Laceration without foreign body, right knee, initial encounter (principal); S51.011A Laceration without foreign body of right elbow, initial encounter; I50.9 Heart failure, unspecified; J44.9 Chronic obstructive pulmonary disease, unspecified; Z23 Encounter for immunization; Z88.6 Allergy status to analgesic agent; Z88.8 Allergy status to other drugs, medicaments and biological substances; W01.0XXA Fall on same level from slipping, tripping and stumbling without subsequent striking against object, initial encounter; Y92.009 Unspecified place in unspecified non-institutional (private) residence as the place of occurrence of the external cause
CPT/HCPCS: 12005; 73562; 90471; 90715; 99283; J2001; J3490

== ENCOUNTER 2020-06-21 12:03 | Emergency (ER) | payer MEDICARE, OTHER ==
[2020-06-21 13:06] LABS: ANION GAP 13.5 mEq/L (7-13); CHLORIDE,CL 100 mmol/L (98-107); SODIUM,NA 138 mmol/L (136-145)
[2020-06-21 13:39] LABS: CORONAVIRUS COVID-19 NAA NEGATIVE (NEGATIVE)
[2020-06-21] MEDS ORDERED: Iopamidol 755 Mg/ML 100 ML Bottle IVPUSH ONE (13:59)
--- NOTE | 2020-06-21 15:23 | US ---
PROCEDURE INFORMATION: Exam: US Duplex Left Lower Extremity Veins, Limited Exam date and time: 06/21/2020 2:21 PM Age: 89 years old Clinical indication: Swelling (edema) of limb; Lower extremity, left; Patient HX: Left lower extremity swelling; Additional info: Short of breath TECHNIQUE: Imaging protocol: Real-time Duplex ultrasound of the Left Lower Extremity with 2-D minor scale, color Doppler flow and spectral waveform analysis with image documentation. Limited exam focused on the left lower extremity veins. COMPARISON: No relevant prior studies available. FINDINGS: Left deep veins: Unremarkable. The common femoral, femoral, proximal profunda femoral and popliteal veins are patent without thrombus. Normal Doppler waveforms. Normal compressibility and/or augmentation response. Left superficial veins: Unremarkable. Saphenofemoral junction is patent without thrombus. Soft tissues: Unremarkable. IMPRESSION: No evidence of deep vein thrombosis.
--- NOTE | 2020-06-21 15:44 | CT ---
PROCEDURE INFORMATION: Exam: CT Chest With Contrast; Diagnostic Exam date and time: 06/21/2020 2:58 PM Age: 89 years old Clinical indication: Shortness of breath; Patient HX: SOB, d-dimer 657, swelling left lower extremity; Additional info: Short of breath TECHNIQUE: Imaging protocol: Diagnostic computed tomography of the chest with contrast. Radiation optimization: All CT scans at this facility use at least one of these dose optimization techniques: automated exposure control; mA and/or kV adjustment per patient size (includes targeted exams where dose is matched to clinical indication); or iterative reconstruction. Contrast material: ISOVUE 370; Contrast volume: 58 ml; Contrast route: INTRAVENOUS (IV); COMPARISON: CT Chest w Cont 07/19/2013 6:57 AM FINDINGS: Lungs: Chronic appearing interstitial changes are present within the lung parenchyma. Scattered cysts are identified as well as a few small pulmonary nodules. These appear to be similar to the previous examination of 2013. No definite new or enlarging mass or nodule identified. There is no significant bronchiectasis or pulmonary fibrosis. Pleural spaces: Unremarkable. No pneumothorax. No pleural effusion. Heart: Heart is mildly enlarged with mild coronary calcium noted. Pulmonary arteries: The main pulmonary artery is enlarged. This suggest probable chronic underlying pulmonary arterial hypertension. No filling defects are present within the pulmonary arteries to suggest pulmonary embolism. Aorta: Unremarkable. No aortic aneurysm. Lymph nodes: Mildly prominent lymph node is present in the right hilar region measuring approximately 1.5 cm in short axis diameter. This is likely reactive to the probable chronic inflammatory lung disease. No additional enlarged lymph nodes are present within the mediastinum or hilum. Bones/joints: Moderate grade thoracic kyphosis is present with wedging of multiple thoracic vertebral bodies. This appears to be chronic. No acute fractures are present. Soft tissues: Unremarkable. IMPRESSION: 1. No pulmonary embolism present. 2. Chronic changes within the lung parenchyma appear to be grossly stable when compared to the previous examination. 3. Enlarged main pulmonary artery compatible with underlying chronic pulmonary arterial hypertension. 4. Cardiomegaly with mild coronary atherosclerosis. 5. Moderate grade degenerative change within the thoracic spine with moderate grade thoracic kyphosis. No acute fracture identified. 6. Mildly prominent right hilar lymph node is also similar in appearance to the previous examination and likely related to underlying chronic interstitial lung disease.
--- NOTE | 2020-06-21 16:29 | EDM.PDOC ---
ED HPI GENERAL MEDICAL PROBLEM - General Chief Complaint: Respiratory Problem Stated Complaint: SHORTNESS OF BREATH, SWOLLEN foot Time Seen by Provider: 06/21/20 12:45 Source of Information: Reports: Patient History Limitations: Reports: No Limitations - History of Present Illness INITIAL COMMENTS - FREE TEXT/NARRATIVE: This 89 yo female patient was brought to the ED by a friend due to increased shortness of breath and increased weakness over the past 1 1/2 weeks. The patient reports she has been attempting to get into her primary care facility. Onset: Gradual Duration: Week(s):, Constant, Getting Worse Location: Reports: Chest Quality: Reports: Other Severity: Moderate Improves with: Reports: None Worsens with: Reports: None Context: Reports: Other Associated Symptoms: Reports: No Other Symptoms - Related Data Allergies Allergy/AdvReac Type Severity Reaction Status Date / Time aspirin Allergy Airway Verified 06/21/20 12:28 Tightness an eye drop for virus Allergy Itching Uncoded 01/08/20 16:17 seldane Allergy Cannot Uncoded 01/08/20 16:17 Remember Home Meds: Home Meds Albuterol [Ventolin HFA] 2 puff INH Q6HR PRN 07/19/13 [History] Levothyroxine [Synthroid] 100 mcg PO DAILY 07/19/13 [History] Montelukast [Singulair] 10 mg PO BEDTIME 07/19/13 [History] Theophylline [Theophylline Anhydrous] 300 mg PO BID 07/19/13 [History] Budesonide [Pulmicort Flexhaler] 2 puff INH BID 04/09/18 [History] Non-Formulary Medication [NF Drug] 1 puff INH BID 04/09/18 [History] Omeprazole 20 mg PO DAILY 04/09/18 [History] Furosemide 40 mg PO DAILY #30 tablet 04/11/18 [Rx] Potassium Chloride 10 meq PO BID 07/01/19 [History] Past Medical History HEENT History: Reports: Impaired Vision, Sinusitis Cardiovascular History: Reports: Heart Failure, Other (See Below) Other Cardiovascular History: mitral regurgitation Respiratory History: Reports: Asthma, COPD, Pneumonia, Recurrent, SOB Gastrointestinal History: Reports: Diverticulosis 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: Endocrine/Metabolic History: Reports: Other (See Below) Other Endocrine/Metabolic History: radioactive therapy for thyroid - Past Surgical History Female Surgical History: Reports: Hysterectomy Musculoskeletal Surgical History: Reports: Arthroscopic Knee Social & Family History - Family History Family Medical History: No Pertinent Family History - Tobacco Use Tobacco Use Status *Q: Never Tobacco User - Caffeine Use Caffeine Use: Reports: Coffee - Recreational Drug Use Recreational Drug Use: No - Living Situation & Occupation Living situation: Reports: Alone Occupation: Retired ED ROS GENERAL - Review of Systems Review Of Systems: Comprehensive ROS is negative, except as noted in HPI. ED EXAM, GENERAL - Physical Exam Exam: See Below Exam Limited By: No Limitations General Appearance: Alert, WD/WN, Moderate Distress Eye Exam: Bilateral Eye: EOMI, Normal Inspection, PERRL Ears: Normal External Exam Nose: Normal Inspection, Normal Mucosa, No Blood Throat/Mouth: Normal Inspection, Normal Lips, Normal Teeth, Normal Gums, Normal Oropharynx, Normal Voice, No Airway Compromise Head: Atraumatic, Normocephalic Neck: Normal Inspection, Supple, Non-Tender, Full Range of Motion Respiratory/Chest: No Respiratory Distress, Lungs Clear, Normal Breath Sounds, No Accessory Muscle Use, Chest Non-Tender Cardiovascular: Normal Peripheral Pulses, Regular Rate, Rhythm, No Edema, No Gallop, No JVD, No Murmur, No Rub GI/Abdominal: Normal Bowel Sounds, Soft, Non-Tender, No Organomegaly, No Distention, No Abnormal Bruit, No Mass (Female) Exam: Deferred Rectal (Female) Exam: Deferred Back Exam: Normal Inspection, Full Range of Motion, NT Extremities: Normal Inspection, Normal Range of Motion, Non-Tender, Normal Capillary Refill, No Pedal Edema Neurological: Alert, Oriented, CN II-XII Intact, Normal Cognition, Normal Gait, Normal Reflexes, No Motor/Sensory Deficits Psychiatric: Normal Affect, Normal Mood Skin Exam: Warm, Dry, Intact, Normal Color, No Rash Lymphatic: No Adenopathy Course - Vital Signs Last Recorded V/S: Last Vital Signs Temp 37.2 C 06/21/20 12:24 Pulse 107 H 06/21/20 12:24 Resp 20 06/21/20 12:24 BP 126/86 06/21/20 12:24 Pulse Ox 88 L 06/21/20 12:24 - Orders/Labs/Meds Orders: Active Orders 24 hr Category Date Time Status EKG Documentation Completion [RC] STAT Care 06/21/20 12:22 Ordered Labs: Laboratory Tests 06/21/20 06/21/20 06/21/20 Range/Units 12:37 12:37 12:37 WBC 9.2 (5.0-10.0) 10^3/uL RBC 4.68 (4.2-5.4) 10^6/uL Hgb 13.1 (12.0-16.0) g/dL Hct 40.5 (37.0-47.0) % MCV 86.5 (80-100) fL MCH 28.0 (27.0-34.0) pg MCHC 32.3 L (33.0-35.0) g/dL Plt Count 275 (150-450) 10^3/uL Neut % (Auto) 76.5 H (42.2-75.2) % Lymph % (Auto) 13.8 L (20.5-50.1) % [place] % (Auto) 8.3 H (2-8) % Eos % (Auto) 1.1 (1.0-3.0) % Baso % (Auto) 0.3 (0.0-1.0) % D-Dimer, Quantitative 627 H (0-400) ng/mL Sodium 138 (136-145) mmol/L Potassium 3.5 (3.5-5.1) mmol/L Chloride 100 (98-107) mmol/L Carbon Dioxide 28 (21-32) mmol/L Anion Gap 13.5 H (7-13) mEq/L BUN 17 (7-18) mg/dL Creatinine 0.95 (0.55-1.02) mg/dL Est Cr Clr Drug Dosing 32.37 mL/min Estimated GFR (MDRD) 56 BUN/Creatinine Ratio 17.9 (No establ ref range) Glucose 115 H (74-99) mg/dL Lactic Acid (0.4-2.0) mmol/L Calcium 8.9 (8.5-10.1) mg/dL Total Bilirubin 0.5 (0.2-1.0) mg/dL AST 15 (15-37) U/L ALT 16 (14-59) U/L Alkaline Phosphatase 72 (46-116) U/L Troponin I < 0.017 (0.000-0.056) ng/mL B-Natriuretic Peptide 381 H (0-100) pg/ml Total Protein 7.4 (6.4-8.2) g/dL Albumin 3.0 L (3.4-5.0) g/dL Globulin 4.4 Albumin/Globulin Ratio 0.68 Urine Color (YELLOW) Urine Appearance (CLEAR) Urine pH (5.0-9.0) Ur Specific [place] (1.005-1.030) Urine Protein (NEGATIVE) Urine Glucose (UA) (NEGATIVE) Urine Ketones (NEGATIVE) Urine Occult Blood (NEGATIVE) Urine Nitrite (NEGATIVE) Urine Bilirubin (NEGATIVE) Urine Urobilinogen (0.2-1.0) mg/dL Ur Leukocyte Esterase (NEGATIVE) Influenza Type A RNA (NEGATIVE) Influenza Type B RNA (NEGATIVE) SARS-CoV-2 RNA ([place]) (NEGATIVE) 06/21/20 06/21/20 06/21/20 Range/Units 12:37 12:55 15:42 WBC (5.0-10.0) 10^3/uL RBC (4.2-5.4) 10^6/uL Hgb (12.0-16.0) g/dL Hct (37.0-47.0) % MCV (80-100) fL MCH (27.0-34.0) pg MCHC (33.0-35.0) g/dL Plt Count (150-450) 10^3/uL Neut % (Auto) (42.2-75.2) % Lymph % (Auto) (20.5-50.1) % [place] % (Auto) (2-8) % Eos % (Auto) (1.0-3.0) % Baso % (Auto) (0.0-1.0) % D-Dimer, Quantitative (0-400) ng/mL Sodium (136-145) mmol/L Potassium (3.5-5.1) mmol/L Chloride (98-107) mmol/L Carbon Dioxide (21-32) mmol/L Anion Gap (7-13) mEq/L BUN (7-18) mg/dL Creatinine (0.55-1.02) mg/dL Est Cr Clr Drug Dosing mL/min Estimated GFR (MDRD) BUN/Creatinine Ratio (No establ ref range) Glucose (74-99) mg/dL Lactic Acid 1.6 (0.4-2.0) mmol/L Calcium (8.5-10.1) mg/dL Total Bilirubin (0.2-1.0) mg/dL AST (15-37) U/L ALT (14-59) U/L Alkaline Phosphatase (46-116) U/L Troponin I (0.000-0.056) ng/mL B-Natriuretic Peptide (0-100) pg/ml Total Protein (6.4-8.2) g/dL Albumin (3.4-5.0) g/dL Globulin Albumin/Globulin Ratio Urine Color Yellow (YELLOW) Urine Appearance Clear (CLEAR) Urine pH 7.0 (5.0-9.0) Ur Specific [place] 1.020 (1.005-1.030) Urine Protein Negative (NEGATIVE) Urine Glucose (UA) Negative (NEGATIVE) Urine Ketones Negative (NEGATIVE) Urine Occult Blood Negative (NEGATIVE) Urine Nitrite Negative (NEGATIVE) Urine Bilirubin Negative (NEGATIVE) Urine Urobilinogen 0.2 (0.2-1.0) mg/dL Ur Leukocyte Esterase Negative (NEGATIVE) Influenza Type A RNA Negative (NEGATIVE) Influenza Type B RNA Negative (NEGATIVE) SARS-CoV-2 RNA ([place]) Negative (NEGATIVE) Meds: Medications Discontinued Medications Generic Name Dose Route Start Last Admin Trade Name Freq PRN Reason Stop Dose Admin Iopamidol 100 ml 06/21/20 13:59 06/21/20 15:15 Isovue-370 (76%) IVPUSH 06/21/20 14:00 58 ml ONETIME ONE Administration Departure - Departure Time of Disposition: 16:25 Disposition: Home, Self-Care 01 Condition: Fair Clinical Impression: Generalized weakness COPD (chronic obstructive pulmonary disease) Qualifiers: COPD type: unspecified COPD Qualified Code(s): J44.9 - Chronic obstructive pulmonary disease, unspecified - Discharge Information *PRESCRIPTION DRUG MONITORING PROGRAM REVIEWED*: Not Applicable *COPY OF PRESCRIPTION DRUG MONITORING REPORT IN PATIENT GERALDINE: Not Applicable Instructions: Chronic Obstructive Pulmonary Disease, [id number] Forms: ED Department Discharge Care Plan Goals: The patient was advised of the examination, lab, EKG, CT and ultrasound results during the visit. The patient was encouraged to follow-up with her primary care facility for continued evaluation and further management. If the patient has any additional symptoms or concerns, the patient should either return to the emergency department or visit her primary care facility. Sepsis Event Note (ED) - Evaluation Sepsis Screening Result: No Definite Risk - Focused Exam Vital Signs: Vital Signs Temp Pulse Resp BP Pulse Ox 06/21/20 12:24 37.2 C 107 H 20 126/86 88 L - My Orders Last 24 Hours: My Active Orders 06/21/20 12:22 EKG Documentation Completion [RC] STAT - Assessment/Plan Last 24 Hours: My Active Orders 06/21/20 12:22 EKG Documentation Completion [RC] STAT
== END 2020-06-21 16:42 | disposition home or self-care (01) ==
LOC: DL.ED 12:03
DX: J44.9 Chronic obstructive pulmonary disease, unspecified (principal); R53.1 Weakness; I50.9 Heart failure, unspecified; Z88.8 Allergy status to other drugs, medicaments and biological substances; Z79.899 Other long term (current) drug therapy; Z20.822 Contact with and (suspected) exposure to COVID-19
CPT/HCPCS: 0240U; 36415; 71260; 80053; 81003; 83605; 83880; 84484; 85025; 85379; 93005; 93010; 93971; 99284; 99285; Q9967

== ENCOUNTER 2020-09-03 19:32 | Observation (INO) | payer MEDICARE, OTHER ==
--- NOTE | 2020-09-03 19:33 | EDM.PDOC ---
ED HPI GENERAL MEDICAL PROBLEM - General Stated Complaint: AMBULANCE Time Seen by Provider: 09/03/20 19:33 Source of Information: Reports: Patient, EMS, EMS Notes Reviewed, RN, RN Notes Reviewed History Limitations: Reports: No Limitations - History of Present Illness INITIAL COMMENTS - FREE TEXT/NARRATIVE: Pt is an 89 year old female who presents to ER per [facility] with c/o severe weakness. Patient states she has been getting progressively weaker since she went to a clinic appointment on Monday. Patient has a hx of asthma and COPD. Patient states she was treated with Augmentin for a sinus infection. She states that cleared up but she stopped taking the Augmentin early because she became so constipated from it. She states she had a BM today, denies blood in the stool. Patient c/o increased SOB. States she is on 4L O2 at home at all times. Patient denies any fever or chills. Onset: Gradual - Related Data Allergies Allergy/AdvReac Type Severity Reaction Status Date / Time aspirin Allergy Airway Verified 06/21/20 12:28 Tightness an eye drop for virus Allergy Itching Uncoded 01/08/20 16:17 seldane Allergy Cannot Uncoded 01/08/20 16:17 Remember Home Meds: Home Meds Albuterol [Ventolin HFA] 2 puff INH Q6HR PRN 07/19/13 [History] Levothyroxine [Synthroid] 100 mcg PO DAILY 07/19/13 [History] Montelukast [Singulair] 10 mg PO BEDTIME 07/19/13 [History] Theophylline [Theophylline Anhydrous] 300 mg PO BID 07/19/13 [History] Budesonide [Pulmicort Flexhaler] 2 puff INH BID 04/09/18 [History] Non-Formulary Medication [NF Drug] 1 puff INH BID 04/09/18 [History] Omeprazole 20 mg PO DAILY 04/09/18 [History] Furosemide 40 mg PO DAILY #30 tablet 04/11/18 [Rx] Potassium Chloride 10 meq PO BID 07/01/19 [History] Acetaminophen [Tylenol] 09/03/20 [History] Clobetasol Propionate [Temovate 0.05% Oint] 09/03/20 [History] Ganciclovir [Zirgan 0.15% Ophth Gel] 09/03/20 [History] estradioL [Estrace 0.01% Vaginal Crm] 09/03/20 [History] methylPREDNISolone [Medrol Dose Pack] 09/03/20 [History] Past Medical History HEENT History: Reports: Impaired Vision, Sinusitis Cardiovascular History: Reports: Heart Failure, Other (See Below) Other Cardiovascular History: mitral regurgitation Respiratory History: Reports: Asthma, COPD, Pneumonia, Recurrent, SOB Gastrointestinal History: Reports: Diverticulosis 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 ED EXAM, GENERAL - Physical Exam Exam: See Below Exam Limited By: Physical Impairment (very weak) General Appearance: Alert, WD/WN, Mild Distress Eye Exam: Bilateral Eye: Normal Inspection Ears: Normal External Exam, Hearing Grossly Normal Nose: Normal Inspection Throat/Mouth: Normal Inspection, Normal Voice, No Airway Compromise Head: Atraumatic, Normocephalic Neck: Normal Inspection, Supple, Non-Tender, Full Range of Motion Respiratory/Chest: No Respiratory Distress, No Accessory Muscle Use, Chest Non- Tender, Decreased Breath Sounds Cardiovascular: Normal Peripheral Pulses, No Edema, No Gallop, No JVD, No Murmur, No Rub, Irregularly Irregular Peripheral Pulses: 2+: Radial (L), Radial (R), Dorsalis Pedis (L), Dorsalis Pedis (R) GI/Abdominal: Normal Bowel Sounds, Soft, Non-Tender (Female) Exam: Deferred Rectal (Female) Exam: Deferred Back Exam: Normal Inspection, Full Range of Motion, NT Extremities: Other (weakness of the lower extremities) Neurological: Alert, Oriented, CN II-XII Intact, Normal Cognition, Normal Reflexes, No Motor/Sensory Deficits Psychiatric: Normal Affect, Normal Mood Skin Exam: Warm, Dry, Intact, Normal Color, No Rash Lymphatic: No Adenopathy #1 Interpretation EKG Date: 09/03/20 Time: 19:49 Rhythm: Other (sinus rhythm) Rate (Beats/Min): 88 Furlong: LAD-Left Furlong Deviation P-Wave: Present QRS: Wide ST-T: Normal QT: Normal Comparison: Change From Previous EKG EKG Interpretation Comments: PVC's Course - Vital Signs Last Recorded V/S: Last Vital Signs Temp 97.2 F 09/03/20 20:10 Pulse 90 09/03/20 20:10 Resp 20 09/03/20 20:10 BP 128/60 09/03/20 20:10 Pulse Ox 94 L 09/03/20 20:10 - Orders/Labs/Meds Orders: Active Orders 24 hr Category Date Time Status Admission Status [Patient Status] [ADT] Routine ADT 09/03/20 22:21 Active EKG Documentation Completion [RC] STAT Care 09/03/20 19:37 Active CULTURE BLOOD [BC] Stat Lab 09/03/20 19:57 Received CULTURE BLOOD [BC] Stat Lab 09/03/20 20:03 Received UA W/GABBY RFLX IF INDICATED [URIN] Stat Lab 09/03/20 19:39 Ordered Sodium Chloride 0.9% [Normal Saline] 1,000 ml Med 09/03/20 20:58 Active IV .BOLUS Blood Culture x2 Reflex Set [OM.PC] Stat Oth 09/03/20 19:38 Ordered Medication Orders Sodium Chloride (Normal Saline) 1,000 mls @ 150 mls/hr IV .BOLUS ONE Stop: 09/04/20 03:37 Last Admin: 09/03/20 21:27 Dose: 150 mls/hr Documented by: MIROSLAVA Labs: Laboratory Tests 09/03/20 09/03/20 09/03/20 Range/Units 19:57 19:57 19:57 WBC 9.4 (5.0-10.0) 10^3/uL RBC 4.88 (4.2-5.4) 10^6/uL Hgb 12.5 (12.0-16.0) g/dL Hct 40.4 (37.0-47.0) % MCV 82.8 D (80-100) fL MCH 25.6 L (27.0-34.0) pg MCHC 30.9 L (33.0-35.0) g/dL Plt Count 275 (150-450) 10^3/uL Neut % (Auto) 66.3 (42.2-75.2) % Lymph % (Auto) 22.4 (20.5-50.1) % [place] % (Auto) 9.9 H (2-8) % Eos % (Auto) 1.2 (1.0-3.0) % Baso % (Auto) 0.2 (0.0-1.0) % Sodium 138 (136-145) mmol/L Potassium 3.9 (3.5-5.1) mmol/L Chloride 100 (98-107) mmol/L Carbon Dioxide 29 (21-32) mmol/L Anion Gap 12.9 (7-13) mEq/L BUN 34 H (7-18) mg/dL Creatinine 1.10 H (0.55-1.02) mg/dL Est Cr Clr Drug Dosing 25.39 mL/min Estimated GFR (MDRD) 47 BUN/Creatinine Ratio 30.9 (No establ ref range) Glucose 126 H (70-99) mg/dL Lactic Acid 1.4 (0.4-2.0) mmol/L Calcium 8.5 (8.5-10.1) mg/dL Magnesium 2.6 H (1.8-2.4) mg/dL Total Bilirubin 0.6 (0.2-1.0) mg/dL AST 16 (15-37) U/L ALT 37 (14-59) U/L Alkaline Phosphatase 87 (46-116) U/L Troponin I 0.021 (0.000-0.056) ng/mL C-Reactive Protein 0.4 (0.0-0.9) mg/dL B-Natriuretic Peptide 653 H (0-100) pg/ml Total Protein 6.7 (6.4-8.2) g/dL Albumin 3.1 L (3.4-5.0) g/dL Globulin 3.6 Albumin/Globulin Ratio 0.86 Influenza Type A RNA (NEGATIVE) Influenza Type B RNA (NEGATIVE) SARS-CoV-2 RNA ([place]) (NEGATIVE) 09/03/20 Range/Units 20:22 WBC (5.0-10.0) 10^3/uL RBC (4.2-5.4) 10^6/uL Hgb (12.0-16.0) g/dL Hct (37.0-47.0) % MCV (80-100) fL MCH (27.0-34.0) pg MCHC (33.0-35.0) g/dL Plt Count (150-450) 10^3/uL Neut % (Auto) (42.2-75.2) % Lymph % (Auto) (20.5-50.1) % [place] % (Auto) (2-8) % Eos % (Auto) (1.0-3.0) % Baso % (Auto) (0.0-1.0) % Sodium (136-145) mmol/L Potassium (3.5-5.1) mmol/L Chloride (98-107) mmol/L Carbon Dioxide (21-32) mmol/L Anion Gap (7-13) mEq/L BUN (7-18) mg/dL Creatinine (0.55-1.02) mg/dL Est Cr Clr Drug Dosing mL/min Estimated GFR (MDRD) BUN/Creatinine Ratio (No establ ref range) Glucose (70-99) mg/dL Lactic Acid (0.4-2.0) mmol/L Calcium (8.5-10.1) mg/dL Magnesium (1.8-2.4) mg/dL Total Bilirubin (0.2-1.0) mg/dL AST (15-37) U/L ALT (14-59) U/L Alkaline Phosphatase (46-116) U/L Troponin I (0.000-0.056) ng/mL C-Reactive Protein (0.0-0.9) mg/dL B-Natriuretic Peptide (0-100) pg/ml Total Protein (6.4-8.2) g/dL Albumin (3.4-5.0) g/dL Globulin Albumin/Globulin Ratio Influenza Type A RNA Negative (NEGATIVE) Influenza Type B RNA Negative (NEGATIVE) SARS-CoV-2 RNA ([place]) Negative (NEGATIVE) Meds: Medications Generic Name Dose Route Start Last Admin Trade Name Freq PRN Reason Stop Dose Admin Sodium Chloride 1,000 mls @ 150 mls/hr 09/03/20 20:58 09/03/20 21:27 Normal Saline IV 09/04/20 03:37 150 mls/hr .BOLUS ONE Administration - Re-Assessments/Exams Free Text/Narrative Re-Assessment/Exam: 09/03/20 22:49 Discussed patient case with Dr. Hanson who agreed to accept the patient for observation admission. Departure - Departure Time of Disposition: 22:49 Disposition: Refer to Observation Condition: Fair Clinical Impression: Weakness, Dehydration - Discharge Information *PRESCRIPTION DRUG MONITORING PROGRAM REVIEWED*: No *COPY OF PRESCRIPTION DRUG MONITORING REPORT IN PATIENT GERALDINE: No Forms: ED Department Discharge Sepsis Event Note (ED) - Focused Exam Vital Signs: Vital Signs Temp Pulse Resp BP Pulse Ox 09/03/20 20:10 97.2 F 90 20 128/60 94 L - My Orders Last 24 Hours: My Active Orders 09/03/20 19:37 EKG Documentation Completion [RC] STAT 09/03/20 19:38 Blood Culture x2 Reflex Set [OM.PC] Stat 09/03/20 19:39 UA W/GABBY RFLX IF INDICATED [URIN] Stat 09/03/20 19:57 CULTURE BLOOD [BC] Stat 09/03/20 20:03 CULTURE BLOOD [BC] Stat 09/03/20 20:58 Sodium Chloride 0.9% [Normal Saline] 1,000 ml IV .BOLUS 09/03/20 22:21 Admission Status [Patient Status] [ADT] Routine - Assessment/Plan Last 24 Hours: My Active Orders 09/03/20 19:37 EKG Documentation Completion [RC] STAT 09/03/20 19:38 Blood Culture x2 Reflex Set [OM.PC] Stat 09/03/20 19:39 UA W/GABBY RFLX IF INDICATED [URIN] Stat 09/03/20 19:57 CULTURE BLOOD [BC] Stat 09/03/20 20:03 CULTURE BLOOD [BC] Stat 09/03/20 20:58 Sodium Chloride 0.9% [Normal Saline] 1,000 ml IV .BOLUS 09/03/20 22:21 Admission Status [Patient Status] [ADT] Routine
[2020-09-03 20:31] LABS: ANION GAP 12.9 mEq/L (7-13)
--- NOTE | 2020-09-03 20:41 | CR ---
PROCEDURE INFORMATION: Exam: XR Chest Exam date and time: 09/03/2020 8:12 PM Age: 89 years old Clinical indication: Chest pain; Type not specified TECHNIQUE: Imaging protocol: XR of the chest. Views: 1 view. COMPARISON: CT Chest w Cont 06/21/2020 2:58 PM FINDINGS: Lungs: Unremarkable. No consolidation. Lungs appear mildly hyperexpanded. Pleural spaces: Unremarkable. No pleural effusion. No pneumothorax. Heart/Mediastinum: Borderline cardiomegaly. Bones/joints: Unremarkable. IMPRESSION: No acute findings.
[2020-09-03] MEDS ORDERED: Sodium Chloride 0.9% 1,000 ML IV ONE (20:58)
[2020-09-03 21:08] LABS: CORONAVIRUS COVID-19 NAA NEGATIVE (NEGATIVE)
[2020-09-03] MEDS ORDERED: Acetaminophen 325 MG Tab PO PRN (23:27)
[2020-09-03] MEDS ORDERED: Ondansetron 4 MG Tab.DIS PO PRN (23:27)
[2020-09-03] MEDS ORDERED: Albuterol 6.7 GM Inhaler INH PRN (23:29)
--- NOTE | 2020-09-04 00:41 | PCM.HP ---
H&P History of Present Illness - General Date of Service: 09/04/20 Admit Problem/Dx: Admission Diagnosis/Problem Admission Diagnosis/Problem Weakness Source of Information: Patient - History of Present Illness Initial Comments - Free Text/Narative: Patient is an 89-year-old female with a past medical history as listed below who presents to the [facility] emergency department at the request of a friend who thought that she was not looking well and that she appeared weak. Patient states that she was in her usual state of health up until the past couple of days when she had noted some mild increase in shortness of breath, but has not had to increase her oxygen demand at home. 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 The patient lives at her own residence and refuses to go to an assisted living facility or group home. She believes that she is too high functioning for that. According to her report, she had visitors today who thought that she was too weak to be at the house any longer. She was unable to walk to and from her living room in her kitchen without becoming more short of breath. She looked somewhat discolored and ashen appearing at times. The patient is otherwise denied any headache, upper respiratory tract symptoms, chest pain, chest pressure, pleurisy, nausea/vomiting, abdominal discomfort or difficulties with voiding. The patient admits to being weak and that this has been an ongoing progressive problem. She otherwise walks without the use of an ambulatory aid. Upon evaluation the emergency department she was requiring 4 L of supplemental oxygen via nasal cannula. Again, the patient is on home O2. Chest x-ray was without acute cardiopulmonary disease. Laboratory studies were relatively baseline with out significant abnormality. The patient was referred to the inpatient service due to weakness as it was thought that she could not ambulate and care for herself. She did not undergo an ambulation test in the emergency department. CODE STATUS: DNR/DNI. A 14 point review of systems was reviewed with the patient entirely and only pertinent for the above information. - Related Data Allergies/Adverse Reactions: Allergies Allergy/AdvReac Type Severity Reaction Status Date / Time aspirin Allergy Airway Verified 06/21/20 12:28 Tightness an eye drop for virus Allergy Itching Uncoded 01/08/20 16:17 seldane Allergy Cannot Uncoded 01/08/20 16:17 Remember Home Medications: Home Meds Albuterol [Ventolin HFA] 2 puff INH Q6HR PRN 07/19/13 [History] Levothyroxine [Synthroid] 100 mcg PO DAILY 07/19/13 [History] Montelukast [Singulair] 10 mg PO BEDTIME 07/19/13 [History] Theophylline [Theophylline Anhydrous] 300 mg PO BID 07/19/13 [History] Budesonide [Pulmicort Flexhaler] 2 puff INH BID 04/09/18 [History] Non-Formulary Medication [NF Drug] 1 puff INH BID 04/09/18 [History] Omeprazole 20 mg PO DAILY 04/09/18 [History] Furosemide 40 mg PO DAILY #30 tablet 04/11/18 [Rx] Potassium Chloride 10 meq PO BID 07/01/19 [History] Acetaminophen [Tylenol] 09/03/20 [History] Clobetasol Propionate [Temovate 0.05% Oint] 09/03/20 [History] Ganciclovir [Zirgan 0.15% Ophth Gel] 09/03/20 [History] estradioL [Estrace 0.01% Vaginal Crm] 09/03/20 [History] methylPREDNISolone [Medrol Dose Pack] 09/03/20 [History] Past Medical History HEENT History: Reports: Impaired Vision, Sinusitis Cardiovascular History: Reports: Heart Failure, Other (See Below) Other Cardiovascular History: mitral regurgitation Respiratory History: Reports: Asthma, COPD, Pneumonia, Recurrent, SOB Gastrointestinal History: Reports: Diverticulosis 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: Reports: Endocrine/Metabolic History: Reports: Other (See Below) Other Endocrine/Metabolic History: radioactive therapy for thyroid - Past Surgical History Female Surgical History: Reports: Hysterectomy Musculoskeletal Surgical History: Reports: Arthroscopic Knee Social & Family History - Family History Family Medical History: No Pertinent Family History - Tobacco Use Tobacco Use Status *Q: Never Tobacco User Second Hand Smoke Exposure: No - Caffeine Use Caffeine Use: Reports: Coffee - Recreational Drug Use Recreational Drug Use: No - Living Situation & Occupation Living situation: Reports: Alone Occupation: Retired H&P Review of Systems - Review of Systems: Review Of Systems: Comprehensive ROS is negative, except as noted in HPI. Exam - Exam Exam: See Below - Vital Signs Vital Signs: Last Vital Signs Temp 97.2 F 09/03/20 20:10 Pulse 90 05/06/21 20:10 Resp 20 09/03/20 20:10 BP 128/60 09/03/20 20:10 Pulse Ox 94 L 09/03/20 20:10 Weight: 109 lb - Exam Quality Assessment: Supplemental Oxygen General: Alert, Oriented HEENT: Conjunctiva Clear, EOMI, Nares Patent, Other (Oropharynx clear) Neck: Supple, Trachea Midline Lungs: Normal Respiratory Effort, Decreased Breath Sounds Cardiovascular: Regular Rate, Regular Rhythm GI/Abdominal Exam: Normal Bowel Sounds, Soft, Non-Tender, No Distention Extremities: Normal Inspection, No Pedal Edema Skin: Warm Neurological: Cranial Nerves Intact Neuro Extensive - Mental Status: Alert Neuro Extensive - Motor, Sensory, Reflexes: CN II-XII Intact - Patient Data Lab Results Last 24 hrs: Laboratory Results - last 24 hr 09/03/20 09/03/20 09/03/20 Range/Units 19:57 19:57 19:57 WBC 9.4 (5.0-10.0) 10^3/uL RBC 4.88 (4.2-5.4) 10^6/uL Hgb 12.5 (12.0-16.0) g/dL Hct 40.4 (37.0-47.0) % MCV 82.8 D (80-100) fL MCH 25.6 L (27.0-34.0) pg MCHC 30.9 L (33.0-35.0) g/dL Plt Count 275 (150-450) 10^3/uL Neut % (Auto) 66.3 (42.2-75.2) % Lymph % (Auto) 22.4 (20.5-50.1) % Leon % (Auto) 9.9 H (2-8) % Eos % (Auto) 1.2 (1.0-3.0) % Baso % (Auto) 0.2 (0.0-1.0) % Sodium 138 (136-145) mmol/L Potassium 3.9 (3.5-5.1) mmol/L Chloride 100 (98-107) mmol/L Carbon Dioxide 29 (21-32) mmol/L Anion Gap 12.9 (7-13) mEq/L BUN 34 H (7-18) mg/dL Creatinine 1.10 H (0.55-1.02) mg/dL Est Cr Clr Drug Dosing 25.39 mL/min Estimated GFR (MDRD) 47 BUN/Creatinine Ratio 30.9 (No establ ref range) Glucose 126 H (70-99) mg/dL Lactic Acid 1.4 (0.4-2.0) mmol/L Calcium 8.5 (8.5-10.1) mg/dL Magnesium 2.6 H (1.8-2.4) mg/dL Total Bilirubin 0.6 (0.2-1.0) mg/dL AST 16 (15-37) U/L ALT 37 (14-59) U/L Alkaline Phosphatase 87 (46-116) U/L Troponin I 0.021 (0.000-0.056) ng/mL C-Reactive Protein 0.4 (0.0-0.9) mg/dL B-Natriuretic Peptide 653 H (0-100) pg/ml Total Protein 6.7 (6.4-8.2) g/dL Albumin 3.1 L (3.4-5.0) g/dL Globulin 3.6 Albumin/Globulin Ratio 0.86 Influenza Type A RNA (NEGATIVE) Influenza Type B RNA (NEGATIVE) SARS-CoV-2 RNA ([place]) (NEGATIVE) 09/03/20 Range/Units 20:22 WBC (5.0-10.0) 10^3/uL RBC (4.2-5.4) 10^6/uL Hgb (12.0-16.0) g/dL Hct (37.0-47.0) % MCV (80-100) fL MCH (27.0-34.0) pg MCHC (33.0-35.0) g/dL Plt Count (150-450) 10^3/uL Neut % (Auto) (42.2-75.2) % Lymph % (Auto) (20.5-50.1) % Leon % (Auto) (2-8) % Eos % (Auto) (1.0-3.0) % Baso % (Auto) (0.0-1.0) % Sodium (136-145) mmol/L Potassium (3.5-5.1) mmol/L Chloride (98-107) mmol/L Carbon Dioxide (21-32) mmol/L Anion Gap (7-13) mEq/L BUN (7-18) mg/dL Creatinine (0.55-1.02) mg/dL Est Cr Clr Drug Dosing mL/min Estimated GFR (MDRD) BUN/Creatinine Ratio (No establ ref range) Glucose (70-99) mg/dL Lactic Acid (0.4-2.0) mmol/L Calcium (8.5-10.1) mg/dL Magnesium (1.8-2.4) mg/dL Total Bilirubin (0.2-1.0) mg/dL AST (15-37) U/L ALT (14-59) U/L Alkaline Phosphatase (46-116) U/L Troponin I (0.000-0.056) ng/mL C-Reactive Protein (0.0-0.9) mg/dL B-Natriuretic Peptide (0-100) pg/ml Total Protein (6.4-8.2) g/dL Albumin (3.4-5.0) g/dL Globulin Albumin/Globulin Ratio Influenza Type A RNA Negative (NEGATIVE) Influenza Type B RNA Negative (NEGATIVE) SARS-CoV-2 RNA ([place]) Negative (NEGATIVE) Result Diagrams: 09/03/20 19:57 09/03/20 19:57 Problem List Initiated/Reviewed/Updated: Yes Orders Last 24hrs: Active Orders 24 hr Category Date Time Status Admission Status [Patient Status] [ADT] Routine ADT 09/03/20 22:21 Active EKG Documentation Completion [RC] STAT Care 09/03/20 19:37 Active Oxygen Therapy [RC] PRN Care 09/03/20 23:27 Active Pulse Oximetry [RC] PRN Care 09/03/20 23:28 Active RT Post Treatment Assessment [RC] Click to Edit Care 09/03/20 23:30 Active RT Pre-Treatment Assessment [RC] Click to Edit Care 09/03/20 23:30 Active Up With Assistance [RC] ASDIRECTED Care 09/03/20 23:27 Active VTE/DVT Education [RC] PER UNIT ROUTINE Care 09/03/20 23:27 Active Vital Signs [RC] Q4H Care 09/03/20 23:27 Active Vital Signs [RC] Q8H Care 09/03/20 23:27 Active OT Evaluation and Treatment [CONS] Routine Cons 09/04/20 08:00 Active PT Evaluation and Treatment [CONS] Routine Cons 09/04/20 08:00 Active Regular Diet [DIET] Diet 09/03/20 Breakfast Active CULTURE BLOOD [BC] Stat Lab 09/03/20 19:57 Received CULTURE BLOOD [BC] Stat Lab 09/03/20 20:03 Received Acetaminophen [TylenoL] Med 09/03/20 23:27 Active 650 mg PO Q4H PRN Acetaminophen [TylenoL] Med 09/03/20 23:30 Unverified DOSE UNIT RTE FREQ Albuterol [Proventil HFA] Med 09/03/20 23:29 Active 1 - 2 gm INH Q6HR PRN Budesonide [Pulmicort Flexhaler] Med 09/04/20 09:00 Active 2 puff INH BID Clobetasol Propionate Med 09/03/20 23:30 Unverified DOSE UNIT RTE FREQ Furosemide [Lasix] Med 09/04/20 09:00 Active 40 mg PO DAILY Ganciclovir [Zirgan 0.15% Ophth Gel] Med 09/03/20 23:30 Unverified DOSE UNIT RTE FREQ Heparin Sodium Med 09/04/20 06:00 Active 5,000 units SUBCUT Q8HR Levothyroxine [Synthroid] Med 09/04/20 09:00 Active 100 mcg PO DAILY Montelukast [Singulair] Med 09/04/20 21:00 Active 10 mg PO BEDTIME Omeprazole Med 09/04/20 09:00 Active 20 mg PO DAILY Ondansetron [Zofran ODT] Med 09/03/20 23:27 Active 4 mg PO Q4H PRN Potassium Chloride [Klor-Con 10] Med 09/04/20 09:00 Active 10 meq PO BID Sodium Chloride 0.9% [Normal Saline] 1,000 ml Med 09/03/20 20:58 Active IV .BOLUS Theophylline [Theophylline Anhydrous] Med 09/04/20 09:00 Active 300 mg PO BID Blood Culture x2 Reflex Set [OM.PC] Stat Oth 09/03/20 19:38 Ordered Resuscitation Status Routine Resus Stat 09/03/20 23:27 Ordered Medication Orders Acetaminophen (Acetaminophen 325 Mg Tab) 650 mg PO Q4H PRN PRN Reason: Pain (Mild 1-3)/fever Albuterol (Albuterol 6.7 Gm Inhaler) 1 - 2 gm INH Q6HR PRN PRN Reason: Shortness of Breath Furosemide (Furosemide 40 Mg Tab) 40 mg PO DAILY [facility] Heparin Sodium (Porcine) (Heparin Sodium 5,000 Units/Ml Vial) 5,000 units SUBCUT Q8HR [facility] Sodium Chloride (Normal Saline) 1,000 mls @ 150 mls/hr IV .BOLUS ONE Stop: 09/04/20 03:37 Last Admin: 09/03/20 21:27 Dose: 150 mls/hr Documented by: PINDREN Levothyroxine Sodium (Levothyroxine 100 Mcg Tab) 100 mcg PO DAILY [facility] Montelukast Sodium (Montelukast 10 Mg Tab) 10 mg PO BEDTIME [facility] Non-Formulary Medication (Budesonide [Pulmicort Flexhaler]) 2 puff INH BID [facility] Omeprazole (Omeprazole 20 Mg Cap.Cr) 20 mg PO DAILY [facility] Ondansetron HCl (Ondansetron 4 Mg Tab.Dis) 4 mg PO Q4H PRN PRN Reason: nausea, able to take PO Potassium Chloride (Potassium Chloride 10 Meq Tab.Er) 10 meq PO BID [facility] Theophylline (Theophylline 300 Mg Tab.Er) 300 mg PO BID [facility] Assessment/Plan Comment:: 89-year-old female with a past medical history as listed above who was referred to the internal medicine service due to weakness as she is having difficulty walking short distances physically and due to the requirement for increased oxygen demand. 1. Weakness. Without acute organic cause. Admit under observation. PT and OT consult. Case management and social work consult. Patient would likely benefit from a group home or assisted living placement. At the very least, set up with visiting nursing. 2. Chronic obstructive pulmonary disease/asthma. Patient on home O2 regimen of 2 to 3 L currently. Without distress. Auscultative exam chest with decreased breath sounds without rales, rhonchi or wheezing. Without acute exacerbation. Continue bronchodilator at home regimen. Does not require steroid therapy. All other medical comorbidities are stable nonactive conditions; will continue home medications at regular dose. CODE STATUS: Reviewed and she wishes to be DNR/DNI. DVT prophylaxis with heparin.
[2020-09-04] MEDS: Heparin Sodium 5,000 Units/ML Vial SUBCUT SCH ×3 (05:39→21:22)
--- NOTE | 2020-09-04 08:00 | PCM.PN ---
- General Info Date of Service: 09/04/20 Admission Dx/Problem (Free Text): Admission Diagnosis/Problem Admission Diagnosis/Problem Weakness, COPD, without acute exacerbation. On chronic oxygen. Subjective Update: Hospital day 2. No acute events overnight. Patient noticeably short of breath with ambulation. But maintaining oxygen saturation on less than 6 L via nasal cannula. Patient believes that she is short of breath this morning and is awaiting her medication administration. She denies any chest pain, chest pressure, pleurisy. No audible wheezing. - Patient Data Vitals - Most Recent: Last Vital Signs Temp 98.3 F 09/03/20 23:27 Pulse 85 09/03/20 23:27 Resp 16 09/03/20 23:27 BP 118/70 09/03/20 23:27 Pulse Ox 97 09/03/20 23:28 Weight - Most Recent: 107 lb 8 oz I&O - Last 24 Hours: Intake & Output 09/03/20 09/04/20 09/04/20 22:59 06:59 14:59 Intake Total 500 Balance 500 Lab Results Last 24 Hours: Laboratory Results - last 24 hr 09/03/20 09/03/20 09/03/20 Range/Units 19:57 19:57 19:57 WBC 9.4 (5.0-10.0) 10^3/uL RBC 4.88 (4.2-5.4) 10^6/uL Hgb 12.5 (12.0-16.0) g/dL Hct 40.4 (37.0-47.0) % MCV 82.8 D (80-100) fL MCH 25.6 L (27.0-34.0) pg MCHC 30.9 L (33.0-35.0) g/dL Plt Count 275 (150-450) 10^3/uL Neut % (Auto) 66.3 (42.2-75.2) % Lymph % (Auto) 22.4 (20.5-50.1) % [place] % (Auto) 9.9 H (2-8) % Eos % (Auto) 1.2 (1.0-3.0) % Baso % (Auto) 0.2 (0.0-1.0) % Sodium 138 (136-145) mmol/L Potassium 3.9 (3.5-5.1) mmol/L Chloride 100 (98-107) mmol/L Carbon Dioxide 29 (21-32) mmol/L Anion Gap 12.9 (7-13) mEq/L BUN 34 H (7-18) mg/dL Creatinine 1.10 H (0.55-1.02) mg/dL Est Cr Clr Drug Dosing 25.39 mL/min Estimated GFR (MDRD) 47 BUN/Creatinine Ratio 30.9 (No establ ref range) Glucose 126 H (70-99) mg/dL Lactic Acid 1.4 (0.4-2.0) mmol/L Calcium 8.5 (8.5-10.1) mg/dL Magnesium 2.6 H (1.8-2.4) mg/dL Total Bilirubin 0.6 (0.2-1.0) mg/dL AST 16 (15-37) U/L ALT 37 (14-59) U/L Alkaline Phosphatase 87 (46-116) U/L Troponin I 0.021 (0.000-0.056) ng/mL C-Reactive Protein 0.4 (0.0-0.9) mg/dL B-Natriuretic Peptide 653 H (0-100) pg/ml Total Protein 6.7 (6.4-8.2) g/dL Albumin 3.1 L (3.4-5.0) g/dL Globulin 3.6 Albumin/Globulin Ratio 0.86 Influenza Type A RNA (NEGATIVE) Influenza Type B RNA (NEGATIVE) SARS-CoV-2 RNA ([place]) (NEGATIVE) 09/03/20 Range/Units 20:22 WBC (5.0-10.0) 10^3/uL RBC (4.2-5.4) 10^6/uL Hgb (12.0-16.0) g/dL Hct (37.0-47.0) % MCV (80-100) fL MCH (27.0-34.0) pg MCHC (33.0-35.0) g/dL Plt Count (150-450) 10^3/uL Neut % (Auto) (42.2-75.2) % Lymph % (Auto) (20.5-50.1) % [place] % (Auto) (2-8) % Eos % (Auto) (1.0-3.0) % Baso % (Auto) (0.0-1.0) % Sodium (136-145) mmol/L Potassium (3.5-5.1) mmol/L Chloride (98-107) mmol/L Carbon Dioxide (21-32) mmol/L Anion Gap (7-13) mEq/L BUN (7-18) mg/dL Creatinine (0.55-1.02) mg/dL Est Cr Clr Drug Dosing mL/min Estimated GFR (MDRD) BUN/Creatinine Ratio (No establ ref range) Glucose (70-99) mg/dL Lactic Acid (0.4-2.0) mmol/L Calcium (8.5-10.1) mg/dL Magnesium (1.8-2.4) mg/dL Total Bilirubin (0.2-1.0) mg/dL AST (15-37) U/L ALT (14-59) U/L Alkaline Phosphatase (46-116) U/L Troponin I (0.000-0.056) ng/mL C-Reactive Protein (0.0-0.9) mg/dL B-Natriuretic Peptide (0-100) pg/ml Total Protein (6.4-8.2) g/dL Albumin (3.4-5.0) g/dL Globulin Albumin/Globulin Ratio Influenza Type A RNA Negative (NEGATIVE) Influenza Type B RNA Negative (NEGATIVE) SARS-CoV-2 RNA ([place]) Negative (NEGATIVE) Med Orders - Current: Current Medications Acetaminophen (Acetaminophen 325 Mg Tab) 650 mg PO Q4H PRN PRN Reason: Pain (Mild 1-3)/fever Albuterol/Ipratropium (Albuterol/Ipratropium 3.0-0.5 Mg/3 Ml Neb Soln) 3 ml NEB Q4HRRT [facility] Furosemide (Furosemide 40 Mg Tab) 40 mg PO DAILY [facility] Heparin Sodium (Porcine) (Heparin Sodium 5,000 Units/Ml Vial) 5,000 units SUBCUT Q8HR [facility] Last Admin: 09/04/20 05:39 Dose: 5,000 units Documented by: Levothyroxine Sodium (Levothyroxine 100 Mcg Tab) 100 mcg PO DAILY [facility] Montelukast Sodium (Montelukast 10 Mg Tab) 10 mg PO BEDTIME [facility] Non-Formulary Medication (Budesonide [Pulmicort Flexhaler]) 2 puff INH BID [facility] Omeprazole (Omeprazole 20 Mg Cap.Cr) 20 mg PO DAILY [facility] Ondansetron HCl (Ondansetron 4 Mg Tab.Dis) 4 mg PO Q4H PRN PRN Reason: nausea, able to take PO Potassium Chloride (Potassium Chloride 10 Meq Tab.Er) 10 meq PO BID [facility] Theophylline (Theophylline 300 Mg Tab.Er) 300 mg PO BID [facility] Discontinued Medications Albuterol (Albuterol 6.7 Gm Inhaler) 1 - 2 gm INH Q6HR PRN PRN Reason: Shortness of Breath Sodium Chloride (Normal Saline) 1,000 mls @ 150 mls/hr IV .BOLUS ONE Stop: 09/04/20 03:37 Last Infusion: 09/04/20 05:47 Dose: Infused Documented by: - Exam Quality Assessment: Supplemental Oxygen General: Alert HEENT: Pupils Equal Neck: Supple Lungs: Clear to Auscultation, Wheezing (Mild and expiratory wheezing.), Other (Visibly short of breath this morning. 7-8 word conversational dyspnea noted.) Cardiovascular: Regular Rate, Regular Rhythm GI/Abdominal Exam: Normal Bowel Sounds, Soft, Non-Tender, No Distention Extremities: Normal Inspection, No Pedal Edema Skin: Warm - Patient Data Lab Results Last 24 hrs: Laboratory Results - last 24 hr 09/03/20 09/03/20 09/03/20 Range/Units 19:57 19:57 19:57 WBC 9.4 (5.0-10.0) 10^3/uL RBC 4.88 (4.2-5.4) 10^6/uL Hgb 12.5 (12.0-16.0) g/dL Hct 40.4 (37.0-47.0) % MCV 82.8 D (80-100) fL MCH 25.6 L (27.0-34.0) pg MCHC 30.9 L (33.0-35.0) g/dL Plt Count 275 (150-450) 10^3/uL Neut % (Auto) 66.3 (42.2-75.2) % Lymph % (Auto) 22.4 (20.5-50.1) % [place] % (Auto) 9.9 H (2-8) % Eos % (Auto) 1.2 (1.0-3.0) % Baso % (Auto) 0.2 (0.0-1.0) % Sodium 138 (136-145) mmol/L Potassium 3.9 (3.5-5.1) mmol/L Chloride 100 (98-107) mmol/L Carbon Dioxide 29 (21-32) mmol/L Anion Gap 12.9 (7-13) mEq/L BUN 34 H (7-18) mg/dL Creatinine 1.10 H (0.55-1.02) mg/dL Est Cr Clr Drug Dosing 25.39 mL/min Estimated GFR (MDRD) 47 BUN/Creatinine Ratio 30.9 (No establ ref range) Glucose 126 H (70-99) mg/dL Lactic Acid 1.4 (0.4-2.0) mmol/L Calcium 8.5 (8.5-10.1) mg/dL Magnesium 2.6 H (1.8-2.4) mg/dL Total Bilirubin 0.6 (0.2-1.0) mg/dL AST 16 (15-37) U/L ALT 37 (14-59) U/L Alkaline Phosphatase 87 (46-116) U/L Troponin I 0.021 (0.000-0.056) ng/mL C-Reactive Protein 0.4 (0.0-0.9) mg/dL B-Natriuretic Peptide 653 H (0-100) pg/ml Total Protein 6.7 (6.4-8.2) g/dL Albumin 3.1 L (3.4-5.0) g/dL Globulin 3.6 Albumin/Globulin Ratio 0.86 Influenza Type A RNA (NEGATIVE) Influenza Type B RNA (NEGATIVE) SARS-CoV-2 RNA ([place]) (NEGATIVE) 09/03/20 Range/Units 20:22 WBC (5.0-10.0) 10^3/uL RBC (4.2-5.4) 10^6/uL Hgb (12.0-16.0) g/dL Hct (37.0-47.0) % MCV (80-100) fL MCH (27.0-34.0) pg MCHC (33.0-35.0) g/dL Plt Count (150-450) 10^3/uL Neut % (Auto) (42.2-75.2) % Lymph % (Auto) (20.5-50.1) % [place] % (Auto) (2-8) % Eos % (Auto) (1.0-3.0) % Baso % (Auto) (0.0-1.0) % Sodium (136-145) mmol/L Potassium (3.5-5.1) mmol/L Chloride (98-107) mmol/L Carbon Dioxide (21-32) mmol/L Anion Gap (7-13) mEq/L BUN (7-18) mg/dL Creatinine (0.55-1.02) mg/dL Est Cr Clr Drug Dosing mL/min Estimated GFR (MDRD) BUN/Creatinine Ratio (No establ ref range) Glucose (70-99) mg/dL Lactic Acid (0.4-2.0) mmol/L Calcium (8.5-10.1) mg/dL Magnesium (1.8-2.4) mg/dL Total Bilirubin (0.2-1.0) mg/dL AST (15-37) U/L ALT (14-59) U/L Alkaline Phosphatase (46-116) U/L Troponin I (0.000-0.056) ng/mL C-Reactive Protein (0.0-0.9) mg/dL B-Natriuretic Peptide (0-100) pg/ml Total Protein (6.4-8.2) g/dL Albumin (3.4-5.0) g/dL Globulin Albumin/Globulin Ratio Influenza Type A RNA Negative (NEGATIVE) Influenza Type B RNA Negative (NEGATIVE) SARS-CoV-2 RNA ([place]) Negative (NEGATIVE) Result Diagrams: 09/03/20 19:57 09/03/20 19:57 Sepsis Event Note - Evaluation Sepsis Screening Result: No Definite Risk - Focused Exam Vital Signs: Vital Signs Temp Pulse Resp BP Pulse Ox Pulse Ox 09/03/20 23:28 97 09/03/20 23:27 98.3 F 85 16 118/70 98 97 09/03/20 20:10 97.2 F 90 20 128/60 94 L - Problem List Review Problem List Initiated/Reviewed/Updated: Yes - My Orders Last 24 Hours: My Active Orders 09/03/20 Breakfast Regular Diet [DIET] 09/03/20 23:27 Oxygen Therapy [RC] PRN Up With Assistance [RC] ASDIRECTED VTE/DVT Education [RC] 08,20 Vital Signs [RC] 00,04,08,12,16,20 Vital Signs [RC] Q8H Acetaminophen [TylenoL] 650 mg PO Q4H PRN Ondansetron [Zofran ODT] 4 mg PO Q4H PRN Resuscitation Status Routine 09/03/20 23:28 Pulse Oximetry [RC] PRN 09/03/20 23:30 RT Post Treatment Assessment [RC] Click to Edit RT Pre-Treatment Assessment [RC] Click to Edit 09/04/20 06:00 Heparin Sodium 5,000 units SUBCUT Q8HR 09/04/20 07:36 RT Aerosol Therapy [RC] ASDIRECTED 09/04/20 08:00 OT Evaluation and Treatment [CONS] Routine PT Evaluation and Treatment [CONS] Routine 09/04/20 09:00 Budesonide [Pulmicort Flexhaler] 2 puff INH BID Furosemide [Lasix] 40 mg PO DAILY Levothyroxine [Synthroid] 100 mcg PO DAILY Omeprazole 20 mg PO DAILY Potassium Chloride [Klor-Con 10] 10 meq PO BID Theophylline [Theophylline Anhydrous] 300 mg PO BID 09/04/20 11:00 Albuterol/Ipratropium [DuoNeb 3.0-0.5 MG/3 ML] 3 ml NEB Q4HRRT 09/04/20 21:00 Montelukast [Singulair] 10 mg PO BEDTIME - Plan Plan:: 89-year-old female with a past medical history as listed above who was referred to the internal medicine service due to weakness as she is having difficulty walking short distances physically and due to the requirement for increased oxygen demand. 1. Weakness. Without acute organic cause. Admit under observation. PT and OT consult. Case management and social work consult. Patient would likely benefit from a half-way or assisted living placement. At the very least, set up with visiting nursing. 2. Chronic obstructive pulmonary disease/asthma. Patient on home O2 regimen of 2 to 3 L currently. Without distress. Some conversational dyspnea with notable shortness of breath on exam this morning. Has not received her medications as of yet. RT consulted for scheduled DuoNebs. Continue theophylline. Does not require steroid therapy. All other medical comorbidities are stable nonactive conditions; will continue home medications at regular dose. CODE STATUS: Reviewed and she wishes to be DNR/DNI. DVT prophylaxis with heparin.
[2020-09-04] MEDS: Albuterol/Ipratropium 3.0-0.5 MG/3 ML Neb Soln NEB ONE ×2 (08:10→08:11)
[2020-09-04] MEDS: Albuterol/Ipratropium 3.0-0.5 MG/3 ML Neb Soln NEB SCH ×5 (08:12→23:07)
[2020-09-04] MEDS ORDERED: BUDESONIDE 180 MCG INH SCH (09:00)
[2020-09-04] MEDS: Levothyroxine 100 MCG Tab PO SCH (09:27)
[2020-09-04] MEDS: Omeprazole 20 MG Cap.CR PO SCH (09:27)
[2020-09-04] MEDS: Furosemide 40 MG Tab PO SCH (09:27)
[2020-09-04] MEDS: Potassium Chloride 10 MEQ Tab.ER PO SCH ×2 (09:27→20:44)
[2020-09-04] MEDS: Theophylline 300 MG Tab.ER PO SCH ×2 (09:27→20:44)
[2020-09-04] MEDS ORDERED: Albuterol/Ipratropium 3.0-0.5 MG/3 ML Neb Soln NEB SCH (11:00)
[2020-09-04] MEDS ORDERED: Benzocaine/Cetylpyridinium/Menthol Lozenge MUCMEM PRN (18:19)
[2020-09-04] MEDS ORDERED: Benzonatate 100 MG Cap PO PRN (18:20)
[2020-09-04] MEDS ORDERED: guaiFENesin 100 MG/5 ML Soln 5 ML UD Cup PO PRN (18:20)
[2020-09-04] MEDS: Montelukast 10 MG Tab PO SCH (20:44)
[2020-09-05] MEDS: Albuterol/Ipratropium 3.0-0.5 MG/3 ML Neb Soln NEB SCH ×6 (03:12→22:01)
[2020-09-05] MEDS: Heparin Sodium 5,000 Units/ML Vial SUBCUT SCH ×3 (06:00→22:01)
[2020-09-05] MEDS ORDERED: Sodium Chloride 0.9% 10 ML Syringe FLUSH PRN (08:13)
[2020-09-05] MEDS: Levothyroxine 100 MCG Tab PO SCH (08:22)
[2020-09-05] MEDS: Omeprazole 20 MG Cap.CR PO SCH (08:22)
[2020-09-05] MEDS: Theophylline 300 MG Tab.ER PO SCH ×2 (08:22→20:37)
[2020-09-05] MEDS: Furosemide 40 MG Tab PO SCH (08:23)
[2020-09-05] MEDS: Potassium Chloride 10 MEQ Tab.ER PO SCH (08:27)
[2020-09-05] MEDS: BUDESONIDE 180 MCG INH SCH ×3 (13:54→20:36)
--- NOTE | 2020-09-05 16:16 | PCM.SN.2 ---
- Free Text/Narrative Note: START OF DOCTOR DOROTHEAMIGee PROGRESS NOTE Subjective: The patient endorses no complaints at this time. At rest she currently rates her respiratory status is an 8 out of 10 if 10 is her baseline. She has fever, rigors, nausea, vomiting, wheeze, abdominal pain, chest pain. She states that she has occasional cough which is productive of clear sputum. I explained to the patient her current medical condition and plan of care and I have answered all of her questions Objective: General: -Alert -No acute distress -No dyspnea -No tachypnea Heart: -Regular rate -Regular rhythm -No murmurs -No gallops -No rubs Lungs: -No wheeze -No rhonchi -No rales Abdomen: -Normal bowel sounds in all four quadrants -No rebound -No guarding -No tenderness Extremities: -2/4 pulse in all four extremities -No clubbing -No cyanosis -No edema Additional Details / Additional Findings / Exceptions / Miscellaneous: Pertinent Laboratory Results / Pertinent Radiology Results / Pertinent Diagnostic Results / Pertinent Vital Signs: Vital signs stable Assessment / Plan: Generalized weakness. This may be secondary to dehydration as witnessed by acute renal insufficiency. Will recheck creatinine intermittently and initiate IV fluids if warranted. I will check TSH, free T4, and urinalysis. 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 DuoNeb every 4 hours Po Singulair 10 mg p.o. nightly plus theophylline 300 mg p.o. twice daily Acute renal insufficiency. Will monitor creatinine intermittently Hypothyroidism, status post radioactive iodine ablation of the thyroid. Synthroid 100 mcg p.o. daily. Check TSH and free T4 GERD. Prilosec 20 mg p.o. daily Hypertension. Lasix 40 mg p.o. daily plus K-Dur 10 M EQ p.o. twice daily Congestive heart failure. Last echocardiogram at this facility was August 29, 2017 which demonstrated ejection fraction of 60 to 65% with grade 2 diastolic dysfunction with moderate to severe mitral regurgitation and severe aortic stenosis and pulmonary hypertension. Lasix 40 mg p.o. daily plus K-Dur 10 M EQ p.o. twice daily Diverticulosis Osteopenia Coronary artery disease Hyperlipidemia History of cholelithiasis DVT prophylaxis. Heparin 5000 units subcutaneously every 8 hours Disposition: Patient is medically stable for discharge. I will discuss the patient's case with case management, physical therapy, and Occupational Therapy for discharge planning END OF DOCTOR EMAMIS PROGRESS NOTE
[2020-09-05 17:53] LABS: ANION GAP 9.4 mEq/L (7-13); CHLORIDE,CL 101 mmol/L (98-107); SODIUM,NA 138 mmol/L (136-145)
[2020-09-05] MEDS ORDERED: Sodium Chloride 0.9% 250 ML IV SCH (19:00)
[2020-09-05] MEDS: Sodium Chloride 0.9% 1,000 ML IV SCH (20:07)
[2020-09-05] MEDS: Montelukast 10 MG Tab PO SCH (20:37)
[2020-09-06] MEDS: Albuterol/Ipratropium 3.0-0.5 MG/3 ML Neb Soln NEB SCH ×6 (03:15→22:39)
[2020-09-06] MEDS: Heparin Sodium 5,000 Units/ML Vial SUBCUT SCH ×3 (06:05→21:00)
[2020-09-06 06:28] LABS: CHLORIDE,CL 101 mmol/L (98-107); SODIUM,NA 138 mmol/L (136-145)
--- NOTE | 2020-09-06 08:02 | PCM.SN.2 ---
- Free Text/Narrative Note: START OF DOCTOR EMAMIS PROGRESS NOTE Subjective: The patient endorses no complaints at this time. She denies fever, rigors, nausea, vomiting, cough, wheeze, abdominal pain, chest pain, or dyspnea. I explained to the patient her current medical condition and plan of care and have answered all of her questions Objective: General: -Alert -No acute distress -No dyspnea -No tachypnea Heart: -Regular rate -Regular rhythm -No murmurs -No gallops -No rubs Lungs: -No wheeze -No rhonchi -No rales -Distant breath sounds bilaterally Abdomen: -Normal bowel sounds in all four quadrants -No rebound -No guarding -No tenderness Extremities: -2/4 pulse in all four extremities -No clubbing -No cyanosis -No edema Additional Details / Additional Findings / Exceptions / Miscellaneous: Pertinent Laboratory Results / Pertinent Radiology Results / Pertinent Diagnostic Results / Pertinent Vital Signs: Vital signs stable Assessment / Plan: Generalized weakness. This may be secondary to dehydration as witnessed by acute renal insufficiency. Will recheck creatinine intermittently and initiate IV fluids if warranted. I will check TSH, free T4, and urinalysis. 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 DuoNeb every 4 hours Po Singulair 10 mg p.o. nightly plus theophylline 300 mg p.o. twice daily Acute renal insufficiency. Will monitor creatinine intermittently Hypothyroidism, status post radioactive iodine ablation of the thyroid. Synthroid 100 mcg p.o. daily. Check TSH and free T4 GERD. Prilosec 20 mg p.o. daily Hypertension. Congestive heart failure. Last echocardiogram at this facility was August 29, 2017 which demonstrated ejection fraction of 60 to 65% with grade 2 diastolic dysfunction with moderate to severe mitral regurgitation and severe aortic stenosis and pulmonary hypertension. Diverticulosis Osteopenia Coronary artery disease Hyperlipidemia History of cholelithiasis DVT prophylaxis. Heparin 5000 units subcutaneously every 8 hours Disposition: Patient is medically stable for discharge. I will discuss the patient's case with case management, physical therapy, and Occupational Therapy for discharge planning which will likely occur on September 07, 2020 END OF DOCTOR ERNIE PROGRESS NOTE
[2020-09-06] MEDS: BUDESONIDE 180 MCG INH SCH ×2 (08:57→20:57)
[2020-09-06] MEDS: Levothyroxine 100 MCG Tab PO SCH (08:57)
[2020-09-06] MEDS: Theophylline 300 MG Tab.ER PO SCH ×2 (08:57→20:54)
[2020-09-06] MEDS: Omeprazole 20 MG Cap.CR PO SCH (08:57)
[2020-09-06] MEDS: Sodium Chloride 0.9% 1,000 ML IV SCH (15:45)
[2020-09-06] MEDS ORDERED: Simethicone 80 MG Tab.Chew PO PRN (18:17)
[2020-09-06] MEDS ORDERED: Furosemide 20 MG/2 ML VIAL IVPUSH ONE (18:39)
[2020-09-06] MEDS: Montelukast 10 MG Tab PO SCH (20:54)
[2020-09-07] MEDS: Albuterol/Ipratropium 3.0-0.5 MG/3 ML Neb Soln NEB SCH ×3 (03:49→07:33)
[2020-09-07] MEDS: Heparin Sodium 5,000 Units/ML Vial SUBCUT SCH (05:49)
--- NOTE | 2020-09-07 07:38 | PCM.SN.2 ---
- Free Text/Narrative Note: START OF DOCTOR TURNERS PROGRESS NOTE Subjective: The patient endorses no complaints at this time. She denies fever, rigors, nausea, vomiting, cough, wheeze, abdominal pain, chest pain, dyspnea. Upon further questioning she indicates that she feels as though she is her baseline respiratory status. She states that she urinated a generous amount on April 08, 2021 after receiving Lasix. I explained to the patient her current medical condition and plan of care and I have answered all of her questions Objective: General: -Alert -No acute distress -No dyspnea -No tachypnea Heart: -Regular rate -Regular rhythm -No murmurs -No gallops -No rubs Lungs: -No wheeze -No rhonchi -No rales -Distant breath sounds bilaterally Abdomen: -Normal bowel sounds in all four quadrants -No rebound -No guarding -No tenderness Extremities: -2/4 pulse in all four extremities -No clubbing -No cyanosis -No edema Additional Details / Additional Findings / Exceptions / Miscellaneous: Pertinent Laboratory Results / Pertinent Radiology Results / Pertinent Diagnostic Results / Pertinent Vital Signs: Vital signs stable Assessment / Plan: Generalized weakness. This may be secondary to dehydration as witnessed by acute renal insufficiency. Will recheck creatinine intermittently and initiate IV fluids if warranted. I will check TSH, free T4, and urinalysis. 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 DuoNeb every 4 hours Po Singulair 10 mg p.o. nightly plus theophylline 300 mg p.o. twice daily Acute renal insufficiency. Will monitor creatinine intermittently Hypothyroidism, status post radioactive iodine ablation of the thyroid. Synthroid 100 mcg p.o. daily. Check TSH and free T4 GERD. Prilosec 20 mg p.o. daily Hypertension. Congestive heart failure. Last echocardiogram at this facility was August 29, 2017 which demonstrated ejection fraction of 60 to 65% with grade 2 diastolic dysfunction with moderate to severe mitral regurgitation and severe aortic stenosis and pulmonary hypertension. Diverticulosis Osteopenia Coronary artery disease Hyperlipidemia History of cholelithiasis DVT prophylaxis. Heparin 5000 units subcutaneously every 8 hours Disposition: Patient is medically stable for discharge. I will discuss the patient's case with case management, physical therapy, and Occupational Therapy for discharge planning which will likely occur on September 07, 2020 END OF DOCTOR ERNIE PROGRESS NOTE
--- NOTE | 2020-09-07 09:00 | PCM.SN.2 ---
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 Acute renal insufficiency Hypothyroidism, status post radioactive iodine ablation of the thyroid GERD Hypertension CHF with last echocardiogram at this facility being on August 29, 2017 which demonstrated ejection fraction of 60 to 65% with grade 2 diastolic dysfunction with moderate to severe mitral regurgitation and severe aortic stenosis and pulmonary hypertension Diverticulosis Osteopenia Coronary artery disease Hyperlipidemia History of cholelithiasis Consultations: None Condition on Discharge: Stable Disposition: The patient will be advised to follow-up with pulmonology within 2 weeks of discharge for COPD for which the patient is O2 dependent at 4 L to 4.5 L The patient is advised to follow-up with cardiology within 2 weeks of discharge for her history of congestive heart failure Discharge Medications: Theophylline 300 mg p.o. twice daily Serevent discus 1 puff every 12 hours Prilosec 20 mg p.o. daily Singular 10 mg p.o. daily Synthroid 100 mcg p.o. daily Ganciclovir 0.15% ophthalmic gel to be used as directed Lasix 40 mg p.o. daily K-Dur 10 M EQ p.o. twice daily Daliresp 500 mcg p.o. daily Estradiol 0.01% vaginal cream to be applied 2 times weekly Pulmicort Flexhaler 180 mcg/spray: 2 puffs twice daily Albuterol 2.5 mg nebulized every 6 hours as needed shortness of breath or wheeze Proventil HFA: 90 mcg/spray: 2 puffs every 6 hours as needed shortness breath or wheeze END OF DOCTOR EMAMIS DISCHARGE SUMMARY
[2020-09-07] MEDS: Theophylline 300 MG Tab.ER PO SCH (09:35)
[2020-09-07] MEDS: Levothyroxine 100 MCG Tab PO SCH (09:35)
[2020-09-07] MEDS: Omeprazole 20 MG Cap.CR PO SCH (09:35)
[2020-09-07] MEDS: BUDESONIDE 180 MCG INH SCH (09:38)
== END 2020-09-07 11:30 ==
LOC: DL.ED 19:32 → DL.MS 22:21
PROVIDERS: ADMIT Hospitalist; ATTEND Internal Medicine
DX: R53.1 Weakness (principal); I10 Essential (primary) hypertension; I50.9 Heart failure, unspecified; J44.9 Chronic obstructive pulmonary disease, unspecified; E89.0 Postprocedural hypothyroidism; K21.9 Gastro-esophageal reflux disease without esophagitis; I25.10 Atherosclerotic heart disease of native coronary artery without angina pectoris; M85.80 Other specified disorders of bone density and structure, unspecified site; Z20.828 Contact with and (suspected) exposure to other viral communicable diseases; Z99.81 Dependence on supplemental oxygen; Z88.8 Allergy status to other drugs, medicaments and biological substances; Z79.899 Other long term (current) drug therapy; Z79.890 Hormone replacement therapy; Z98.890 Other specified postprocedural states
CPT/HCPCS: 0240U; 36415; 71045; 80048; 80053; 81001; 82565; 82607; 82746; 83605; 83735; 83880; 84100; 84439; 84443; 84484; 85025; 86140; 87040; 93005; 93010; 94640; 94760; 96361; 96372; 96374; 97161-GP; 97166-GO; 99284; 99285-25; A9270-GY; G0378; J1644; J1940; J7030; J7620-GY; U0002